=== PATIENT | female | born 1955 | race Caucasian/White ===

== ENCOUNTER 2017-09-19 08:35 | Inpatient (IN) | payer MEDICARE, OTHER ==
--- NOTE | 2017-09-16 19:00 | Pre-op HX & Phy Repo 2 SIG ---
DATE OF ADMISSION: 09/19/2017 HISTORY OF PRESENT ILLNESS: The patient is a 61-year-old female, in overall good health with a malfunctioning Ying ileostomy. The patient developed ulcerative colitis in 1986 at age 31. In 1998, she underwent proctocolectomy with creation of an ileoanal J-pouch. 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 The patient developed severe anemia without overt bleeding and no history of pouchitis, but her doctors felt that this was because of the J-pouch and in April 2015, she underwent laparotomy with resection of her J-pouch and abdominal-perineal proctectomy with creation of a Ying ileostomy. Her small bowel remaining was measured at 490 cm equivalent to 16 feet of small bowel. The patient has had marked difficulties with her ileostomy ever since and has allergies to various adhesives. The appliance will not stay on, her skin is often raw and bleeding. Enterostomal therapy nurses ([facility]) have not been able to prevent these issues. She has been unable to eat many different foods and unable to exercise at all. She has not had any issues with dehydration. In February 2017, she developed prolapse of her stoma with 7 inches of prolapse with emergency room visits. More recently, this prolapse is happening on a daily basis with fear of ischemic changes. She is scheduled to be admitted to be prepared for surgery to take down her malfunctioning ileostomy with conversion to a Hernandez type of Kock pouch continent ileostomy. She is in overall good health. PAST SURGICAL HISTORY: pituitary tumor surgery x 3 for acromegaly age 52 and she underwent left total hip replacement in 2013. MEDICATIONS: Paxil 40 mg daily, clonazepam 3 tablets of 0.5 mg daily, Imodium, Bentyl, and sodium bicarbonate tablets. ALLERGIES TO MEDICATIONS: Levaquin, Cipro, penicillin, and possibly sulfa. REVIEW OF SYSTEMS: Anxiety and headache. She has recently been started on amitriptyline to prevent headaches. The patient has acromegaly and had surgery three times for pituitary tumor at age 52. PHYSICAL EXAMINATION: GENERAL: The patient is 5 feet 7.5 inches tall and 140 pounds. [place] and will be examined upon arrival and dictated separately. IMPRESSION: 1. Malfunctioning Ying ileostomy with recurring frequent prolapse of stoma and allergies to adhesives of the appliance. 2. History of ulcerative colitis. 3. History of acromegaly status post pituitary tumor surgery x3 at age 52. 4. History of chronic anxiety for 20 years. 5. Status post total hip replacement left hip in 2013. 6. Status post multiple abdominal operations. 6.1. Proctocolectomy and ileoanal J-pouch in 1998. 6.2. Laparotomy for small bowel obstruction with resection in 2001. 6.3. Laparotomy for small bowel obstruction in 2003. 6.4. Laparotomy for small bowel obstruction with resection in 2007. 6.5. Laparotomy with takedown and resection of J-pouch with abdominal-perineal proctectomy and creation of Ying ileostomy on 05/05/2015. PLAN: I have had a full discussion with the patient regarding the nature of her condition, the nature of the Hernandez continent ileostomy operation, indications, alternatives, options, and risks. I have discussed the general risks of surgery including, bleeding, infection, injury to adjacent structures or organs, anesthetic reactions, deep vein thrombosis despite prophylaxis, etc. I have discussed the specific risks of the Hernandez pouch surgery including potential need for reoperation for slipped valve or fistula or other issues involving the pouch structure or function and I have also discussed the potential for pouchitis although she has never had pouchitis with the J-pouch. I will have another detailed discussion in person with the patient when she arrives [place] state. Enrique Oliva M.D. DR: SACHIN JOB#: [id number] CC: [email or web address]
[~2017-09-19] VITALS: Ht 171.4 cm; Wt 63.5 kg
[2017-09-19 09:00] VITALS: BP 138/82
[2017-09-19 09:57] LABS: BASOPHILS % (AUTO) 1.6 % (0.0-2.0); EOSINOPHILS % (AUTO) 2.5 % (0.0-3.0); HEMATOCRIT 36.9 % (37.0-47.0); HEMOGLOBIN 12.9 G/DL (12.0-16.0); LYMPHOCYTES % (AUTO) 15.5 % (20.0-45.0); MEAN CORPUSCULAR VOLUME 95 FL (80-99); MONOCYTES % (AUTO) 9.8 % (1.0-10.0); NEUTROPHILS % (AUTO) 70.6 % (45.0-75.0); PLATELET COUNT 326 K/UL (150-450); RED BLOOD COUNT 3.87 M/UL (4.20-5.40); WHITE BLOOD COUNT 5.6 K/UL (4.8-10.8)
[2017-09-19] MEDS ORDERED: Lidocaine 1% Plain 30 ml INJ ONE (10:00)
[2017-09-19] MEDS ORDERED: Heparin 2000 units/Ns 1000ml IV ONE (10:00)
[2017-09-19 10:26] LABS: ANION GAP 10 mmol/L (5-15); BLOOD UREA NITROGEN 12 mg/dL (7-18); CALCIUM 9.9 MG/DL (8.5-10.1); CARBON DIOXIDE 25 MMOL/L (21-32); CHLORIDE 94 MMOL/L (98-107); CREATININE 1.6 MG/DL (0.55-1.30); POTASSIUM 5.1 MMOL/L (3.5-5.1); SODIUM 129 MMOL/L (136-145)
[2017-09-19] MEDS ORDERED: DICYCLOMINE HCL20 M1 PO (10:29)
[2017-09-19] MEDS ORDERED: SODIUM BICARBO650 MG PO (10:29)
[2017-09-19] MEDS ORDERED: AMITRIPTYLINE H25 MG ORAL (10:29)
[2017-09-19] MEDS ORDERED: PAXIL40 MG ORAL (10:29)
[2017-09-19] MEDS ORDERED: KLONOPIN0.5 MG ORAL (10:29)
[2017-09-19 10:37] LABS: ALANINE AMINOTRANSFERASE 55 U/L (12-78); ALBUMIN 4.7 G/DL (3.4-5.0); ALBUMIN/GLOBULIN RATIO 1.2 (1.0-2.7); ALKALINE PHOSPHATASE 94 U/L (46-116); ASPARTATE AMINO TRANSFERASE 32 U/L (15-37); BILIRUBIN,TOTAL 0.4 MG/DL (0.2-1.0)
[2017-09-19 11:00] VITALS: BP 119/74
--- NOTE | 2017-09-19 11:26 | Diagnostic Imaging Report ---
Indications: Needs long-term IV access Technique: Ultrasound confirms patent compressible left basilic vein. Total sterile technique, including sterile probe cover and sterile gel, hat, mask,, sterile gown, large sterile drape, and preparation with 2% chlorhexidine utilized. Local anesthesia with 1% lidocaine. Under real-time ultrasound guidance, puncture basilic vein using 21-gauge needle, documented and archived, passage 0.018 guidewire under direct fluoroscopy, which was used to determine appropriate catheter length, exchange for 5 Faroese peel-away sheath. 5 Faroese Bard dual-lumen power PICC cut to 40 cm. It was inserted through the peel-away sheath. Peel-away sheath and guidewire removed. Catheter fixed to the skin. Both catheter ports aspirated and flushed. Patient tolerated procedure well, without immediate complication. Digital radiograph documents satisfactory catheter tip position, at the cavoatrial junction. Total fluoroscopy time 0.2 minutes. Total dose area product 4.5 dGycm2 Impression: Successful placement of left arm PICC under sonographic and fluoroscopic guidance, as described above.
--- NOTE | 2017-09-19 11:42 | Diagnostic Imaging Report ---
Indication: Cough, status post PICC Technique: One view of the chest Comparison: none Findings: The lungs and pleural spaces are clear. The heart size is normal. There is a left arm PICC, tip terminating in the superior vena cava. Impression: No acute process. Satisfactory PICC position
[2017-09-19] MEDS: clonazePAM 0.5mg tab ORAL PRN ×2 (12:25→23:51)
[2017-09-19] MEDS: Neomycin Sulfate 500mg Tab ORAL SCH ×3 (12:25→21:09)
--- NOTE | 2017-09-19 14:43 | General Progress Note ---
Progress Note Progress Note H&P dictated. Patient examined and site chosen for Hernandez Continent Ileostomy pouch stoma. Na 129 K 5.1 BUN 12 Cr 1.6 Albumin 4.7 Had vaso-vagal reaction post-PICC insertion , fine since Plan: IV hydration Dual lumen PIC (in place) Correct low sodium, mild dehydration f/u labs in AM Surgery tomorrow 1200 Full discussion with patient. TOM CARCAMO Sep 19, 2017 14:43
[2017-09-19 15:50] VITALS: BP 125/79
[2017-09-19 18:58] LABS: APPEARANCE,URINE CLEAR; BILIRUBIN, URINE NEGATIVE (NEGATIVE); COLOR,URINE PALE YELLOW; GLUCOSE, URINE (UA) NEGATIVE (NEGATIVE); KETONES,URINE NEGATIVE (NEGATIVE); LEUKOCYTE ESTERASE ,URINE NEGATIVE (NEGATIVE); NITRITE,URINE NEGATIVE (NEGATIVE); PH,URINE 6 (4.5-8.0); PROTEIN,URINE NEGATIVE (NEGATIVE); UROBILINOGEN,URINE NORMAL MG/DL (0.0-1.0)
[2017-09-19 20:00] VITALS: BP 104/69
--- NOTE | 2017-09-19 20:16 | Pre-op HX & Phy Repo 2 SIG ---
DATE OF ADMISSION: 09/19/2017 The patient has now [place] and is examined. Please see previously dictated History. PHYSICAL EXAMINATION: GENERAL: She appears well developed and well nourished, in no distress. HEENT: Within normal limits. LUNGS: Clear. HEART: Regular rhythm. BREASTS: Without masses. ABDOMEN: Soft and flat. There is a midline scar from epigastrium to pubis with minimal evidence of an umbilicus. The stoma of her Ying ileostomy is high in the right lower quadrant and it alternates between marked prolapse and retracting flush to the skin with peristomal skin irritation. There is no evidence of abdominal wall hernia. PELVIC: Per primary care physician recently. RECTAL: Status post proctectomy. EXTREMITIES: Without edema. Pulses 3+ femoral to pedal bilaterally. NEUROLOGIC: Physiologic. IMPRESSION: 1. Malfunctioning Ying ileostomy with recurrent frequent prolapse as well as retraction and allergies to adhesives of the appliance. 2. History of ulcerative colitis. 3. History of acromegaly status post pituitary tumor surgery x3 at age 52 4. History of chronic anxiety for 20 years. 5. Status post total hip replacement left hip 2013. 6. Status post multiple abdominal operations. 6.1. Proctocolectomy with ileoanal J-pouch and temporary loop ileostomy 1998 6.2. Closure of loop ileostomy 1998. 6.3. Laparotomy for small bowel obstruction with short segment resected 2001 6.4. Laparotomy for small bowel obstruction in 2003. 6.5. Laparotomy for small bowel obstruction with short segment resected 2007 6.6. Laparotomy with takedown and resection of ileoanal J-pouch with abdomino-perineal proctectomy and creation of Ying ileostomy April 2015 PLAN: The patient is a good candidate to undergo conversion of her malfunctioning conventional ileostomy to a Hernandez continent ileostomy. I have had a full discussion again with the patient regarding the nature of the surgery, indications, alternatives, options, and risks, both, the general and specific risks of the surgery. All questions have been answered. The patient understands and agreed to proceed. Enrique Oliva M.D. DR: TOMY JOB#: [id number] CC: СЕРГЕЙ
[2017-09-20] VITALS (12 sets, daily range): BP systolic 91–125; BP diastolic 54–92
[2017-09-20 05:59] LABS: ALANINE AMINOTRANSFERASE 44 U/L (12-78); ALBUMIN 3.8 G/DL (3.4-5.0); ALBUMIN/GLOBULIN RATIO 1.2 (1.0-2.7); ALKALINE PHOSPHATASE 81 U/L (46-116); ANION GAP 6 mmol/L (5-15); ASPARTATE AMINO TRANSFERASE 27 U/L (15-37); BILIRUBIN,TOTAL 0.3 MG/DL (0.2-1.0); BLOOD UREA NITROGEN 11 mg/dL (7-18); CALCIUM 8.5 MG/DL (8.5-10.1); CARBON DIOXIDE 27 MMOL/L (21-32); CHLORIDE 100 MMOL/L (98-107); CREATININE 1.4 MG/DL (0.55-1.30); POTASSIUM 3.9 MMOL/L (3.5-5.1); SODIUM 133 MMOL/L (136-145)
--- NOTE | 2017-09-20 08:34 | General Progress Note ---
Progress Note Progress Note AVSS After overnight IV hydration with NS: Na 133 (was 129) Cr 1.4 (was 1.6) Albumin 3.8 Stable for surgery. TOM CARCAMO Sep 20, 2017 08:34
--- NOTE | 2017-09-20 08:35 | Pre-Procedure Note/Attestation ---
Pre-Procedure Note/Attestation Complete Prior to Procedure Planned Procedure: not applicable Procedure Narrative: Hernandez Continent Ileostomy; gastrostomy Indications for Procedure Pre-Operative Diagnosis: Malfunctioning Ying ileostomy with prolapse and retraction Attestation I attest that I discussed the nature of the procedure; its benefits; risks and complications; and alternatives (and the risks and benefits of such alternatives ), prior to the procedure, with the patient (or the patient's legal phlebotomy services representative). I attest that, if there was a reasonable possibility of needing a blood transfusion, the patient (or the patient's legal phlebotomy services representative) was given the [facility] standardized written summary, pursuant to the [place] Blood Safety Act ([place] Health and Safety Code # 1645, as amended). I attest that I re-evaluated the patient just prior to the surgery and that there has been no change in the patient's H&P, except as documented below: none TOM CARCAMO Sep 20, 2017 08:35
[2017-09-20] MEDS: Aztreonam Inj 1 GM in D5W 55 ML IVPB SCH ×2 (09:17→21:31)
[2017-09-20] MEDS: PARoxetine 20mg tab ORAL SCH (09:17)
[2017-09-20] MEDS ORDERED: Bacitracin 50000 Units Vial ONE (09:35)
[2017-09-20] MEDS ORDERED: Propofol 200mg/20ml IV ONE (09:35)
--- NOTE | 2017-09-20 09:48 | Anethesia Preoperative Eval ---
Anesthesia Pre-op PMH/ROS General Date of Evaluation: Sep 20, 2017 Time of Evaluation: 11:45 Anesthesiologist: Osmel ASA Score: ASA 2 Mallampati Score Class I : Soft palate, uvula, fauces, pillars visible Class II: Soft palate, uvula, fauces visible Class III: Soft palate, base of uvula visible Class IV: Only hard plate visible Mallampati Classification: Class II Surgeon: Pj Diagnosis: Malfunctioning ileostomy Surgical Procedure: Hernandez pouch Family History: no anesthesia problems Allergies: Coded Allergies: LEVOFLOXACIN (Verified Allergy, Severe, 09/19/17) THROAT,LIPS SWELLING PENICILLINS (Verified Allergy, Severe, Hives, 09/19/17) SULFA (SULFONAMIDE ANTIBIOTICS) (Verified Allergy, Mild, 09/19/17) THROAT,LIPS SWELLING Medications: see eMAR Past Medical History Cardiovascular: Denies: HTN, CAD, [place], valve dz, arrhythmia, other Pulmonary: Denies: asthma, COPD, [place], other Gastrointestinal/Genitourinary: Reports: other; Denies: GERD, CRI, ESRD Neurologic/Psychiatric: Reports: depression/anxiety - anxiety; Denies: dementia, CVA, TIA, other Endocrine: Reports: other - Acromegaly s/p pituitary tumor excision at age 5; Denies: DM, hypothyroidism, steroids HEENT: Denies: cataract (L), cataract (R), glaucoma, [place] (L), [place] (R), other Hematology/Immune: Denies: anemia, DVT, bleeding disorder, other Musculoskeletal/Integumentary: Denies: OA, RA, DJD, DDD, edema, other PMH Narrative: Acromegaly (s/p pituitary tumor excision at age 5), ulcerative colitis PSxH Narrative: Pituitary tumor excision, muliple abdominal surgeries including proctectomy Anesthesia Pre-op Phys. Exam Physician Exam Last Vital Signs Date Time Temp Pulse Resp B/P (MAP) Pulse Ox O2 Delivery O2 Flow Rate FiO2 09/20/17 08:00 98.4 87 18 107/64 94 Room Air 98.4 Constitutional: NAD Neurologic: CN 2-12 intact Cardiovascular: RRR, no M/R/G Respiratory: CTA Gastrointestinal: S/NT/ND Airway Exam Mallampati Score: Class II MO: full ROM: full Teeth: intact Anesthesia Pre-op A/P Labs Hematology Test 09/19/17 09:45 09/20/17 05:00 White Blood Count 5.6 K/UL (4.8-10.8) Pending Red Blood Count 3.87 M/UL (4.20-5.40) L Pending Hemoglobin 12.9 G/DL (12.0-16.0) Pending Hematocrit 36.9 % (37.0-47.0) L Pending Mean Corpuscular Volume 95 FL (80-99) Pending Mean Corpuscular Hemoglobin 33.3 PG (27.0-31.0) H Pending Mean Corpuscular Hemoglobin Concent 35.0 G/DL (32.0-36.0) Pending Red Cell Distribution Width 12.0 % (11.6-14.8) Pending Platelet Count 326 K/UL (150-450) Pending Mean Platelet Volume 5.4 FL (6.5-10.1) L Pending Neutrophils (%) (Auto) 70.6 % (45.0-75.0) Pending Lymphocytes (%) (Auto) 15.5 % (20.0-45.0) L Pending Monocytes (%) (Auto) 9.8 % (1.0-10.0) Pending Eosinophils (%) (Auto) 2.5 % (0.0-3.0) Pending Basophils (%) (Auto) 1.6 % (0.0-2.0) Pending Coagulation Test 09/19/17 09:45 Prothrombin Time 10.0 SEC (9.30-11.50) Prothromb Time International Ratio 1.0 (0.9-1.1) Activated Partial Thromboplast Time 24 SEC (23-33) Chemistry Test 09/19/17 09:45 09/20/17 04:00 Sodium Level 129 MMOL/L (136-145) L 133 MMOL/L (136-145) L Potassium Level 5.1 MMOL/L (3.5-5.1) 3.9 MMOL/L (3.5-5.1) Chloride Level 94 MMOL/L (98-107) L 100 MMOL/L (98-107) Carbon Dioxide Level 25 MMOL/L (21-32) 27 MMOL/L (21-32) Anion Gap 10 mmol/L (5-15) 6 mmol/L (5-15) Blood Urea Nitrogen 12 mg/dL (7-18) 11 mg/dL (7-18) Creatinine 1.6 MG/DL (0.55-1.30) H 1.4 MG/DL (0.55-1.30) H Estimat Glomerular Filtration Rate 33.0 mL/min (>60) 38.5 mL/min (>60) Glucose Level 107 MG/DL (74-106) H 97 MG/DL (74-106) Calcium Level 9.9 MG/DL (8.5-10.1) 8.5 MG/DL (8.5-10.1) Total Bilirubin 0.4 MG/DL (0.2-1.0) 0.3 MG/DL (0.2-1.0) Aspartate Amino Transf (AST/SGOT) 32 U/L (15-37) 27 U/L (15-37) Alanine Aminotransferase (ALT/SGPT) 55 U/L (12-78) 44 U/L (12-78) Alkaline Phosphatase 94 U/L (46-116) 81 U/L (46-116) Total Protein 8.6 G/DL (6.4-8.2) H 7.0 G/DL (6.4-8.2) Albumin 4.7 G/DL (3.4-5.0) 3.8 G/DL (3.4-5.0) Globulin 3.9 g/dL 3.2 g/dL Albumin/Globulin Ratio 1.2 (1.0-2.7) 1.2 (1.0-2.7) Risk Assessment & Plan Assessment: Class 2 patient for Hernandez pouch Plan: ROMERO GRESHAM M.D. Sep 20, 2017 09:48
--- NOTE | 2017-09-20 09:57 | Anethesia Preoperative Eval ---
Anesthesia Pre-op PMH/ROS General Date of Evaluation: Sep 20, 2017 Time of Evaluation: 09:48 Anesthesiologist: Rosanna ASA Score: ASA 3 Mallampati Score Class I : Soft palate, uvula, fauces, pillars visible Class II: Soft palate, uvula, fauces visible Class III: Soft palate, base of uvula visible Class IV: Only hard plate visible Mallampati Classification: Class II Surgeon: Pj Diagnosis: Malfunctioning ileostomy Surgical Procedure: Exploratory laparotomy, creation of continent pouch Anesthesia History: none Family History: no anesthesia problems Allergies: Coded Allergies: LEVOFLOXACIN (Verified Allergy, Severe, 09/19/17) THROAT,LIPS SWELLING PENICILLINS (Verified Allergy, Severe, Hives, 09/19/17) SULFA (SULFONAMIDE ANTIBIOTICS) (Verified Allergy, Mild, 09/19/17) THROAT,LIPS SWELLING Medications: see eMAR Past Medical History Cardiovascular: Denies: HTN, CAD, [place], valve dz, arrhythmia, other Pulmonary: Denies: asthma, COPD, [place], other Gastrointestinal/Genitourinary: Reports: GERD, other - H/o UC s/p total colectomy; Denies: CRI, ESRD Neurologic/Psychiatric: Reports: depression/anxiety, other - pituitary tumor acromegaly s/p surgical treatment x 3, chronic mild headaches; Denies: dementia, CVA, TIA Endocrine: Denies: DM, hypothyroidism, steroids, other HEENT: Denies: cataract (L), cataract (R), glaucoma, [place] (L), [place] (R), other Hematology/Immune: Reports: anemia; Denies: DVT, bleeding disorder, other Musculoskeletal/Integumentary: Denies: OA, RA, DJD, DDD, edema, other PMH Narrative: as above, admitted for malfunctioning ileostomy, creation of continence pouch. PSxH Narrative: Total colectomy multiple intraabdominal Sx for small bowel obstruction and maintenance of ileostomy, pituitary Sx x3 Hip arthroplasty Anesthesia Pre-op Phys. Exam Physician Exam Last Vital Signs Date Time Temp Pulse Resp B/P (MAP) Pulse Ox O2 Delivery O2 Flow Rate FiO2 09/20/17 08:00 98.4 87 18 107/64 94 Room Air 98.4 Constitutional: NAD Neurologic: CN 2-12 intact Cardiovascular: RRR, no M/R/G Respiratory: CTA Gastrointestinal: S/NT/ND Airway Exam Mallampati Score: Class II MO: full Neck: flexible ROM: limited Teeth: intact Dentures: no upper, no lower Anesthesia Pre-op A/P Labs Hematology Test 09/20/17 05:00 White Blood Count Pending Red Blood Count Pending Hemoglobin Pending Hematocrit Pending Mean Corpuscular Volume Pending Mean Corpuscular Hemoglobin Pending Mean Corpuscular Hemoglobin Concent Pending Red Cell Distribution Width Pending Platelet Count Pending Mean Platelet Volume Pending Neutrophils (%) (Auto) Pending Lymphocytes (%) (Auto) Pending Monocytes (%) (Auto) Pending Eosinophils (%) (Auto) Pending Basophils (%) (Auto) Pending Chemistry Test 09/20/17 04:00 Sodium Level 133 MMOL/L (136-145) L Potassium Level 3.9 MMOL/L (3.5-5.1) Chloride Level 100 MMOL/L (98-107) Carbon Dioxide Level 27 MMOL/L (21-32) Anion Gap 6 mmol/L (5-15) Blood Urea Nitrogen 11 mg/dL (7-18) Creatinine 1.4 MG/DL (0.55-1.30) H Estimat Glomerular Filtration Rate 38.5 mL/min (>60) Glucose Level 97 MG/DL (74-106) Calcium Level 8.5 MG/DL (8.5-10.1) Total Bilirubin 0.3 MG/DL (0.2-1.0) Aspartate Amino Transf (AST/SGOT) 27 U/L (15-37) Alanine Aminotransferase (ALT/SGPT) 44 U/L (12-78) Alkaline Phosphatase 81 U/L (46-116) Total Protein 7.0 G/DL (6.4-8.2) Albumin 3.8 G/DL (3.4-5.0) Globulin 3.2 g/dL Albumin/Globulin Ratio 1.2 (1.0-2.7) Studies Pre-op Studies: EKG - NSR Risk Assessment & Plan Assessment: ASA 3 Plan: GA with ETT Status Change Before Surgery: No Pre-Antibiotics Drug: as scheduled PREM GENAO M.D. Sep 20, 2017 09:57
[2017-09-20] MEDS ORDERED: Heparin 5000 units/ml inj SUBQ ONE (10:00)
[2017-09-20 10:21] LABS: WHITE BLOOD COUNT 4.9 K/UL (4.8-10.8)
[2017-09-20 10:23] LABS: BASOPHILS % (AUTO) 1.2 % (0.0-2.0); EOSINOPHILS % (AUTO) 3.9 % (0.0-3.0); HEMATOCRIT 32.5 % (37.0-47.0); HEMOGLOBIN 10.9 G/DL (12.0-16.0); LYMPHOCYTES % (AUTO) 18.7 % (20.0-45.0); MEAN CORPUSCULAR VOLUME 95 FL (80-99); MONOCYTES % (AUTO) 10.1 % (1.0-10.0); PLATELET COUNT 277 K/UL (150-450); RED BLOOD COUNT 3.41 M/UL (4.20-5.40); RED CELL DISTRIBUTION WIDTH 11.8 % (11.6-14.8)
[2017-09-20] MEDS ORDERED: NS Irrig 1000ml ONE (11:30)
[2017-09-20] MEDS ORDERED: Sterile Water Irrig 1000ml IRRIG ONE (11:30)
[2017-09-20] MEDS ORDERED: Morphine Sulfate 10mg/ml Inj ONE (11:30)
[2017-09-20] MEDS ORDERED: Zemuron 50mg/5ml Inj IV ONE (11:30)
[2017-09-20] MEDS ORDERED: Midazolam 2mg/2ml Inj ONE (11:30)
[2017-09-20] MEDS ORDERED: Ketorolac 30mg Inj ONE (11:30)
[2017-09-20] MEDS ORDERED: Glycopyrrolate 0.2mg/ml 1ml Vial ONE (11:30)
[2017-09-20] MEDS ORDERED: Neostigmine 1mg/ml 10ml Inj ONE (11:30)
[2017-09-20] MEDS ORDERED: fentaNYL 100 mcg/2 mL IV ONE (11:30)
[2017-09-20] MEDS ORDERED: LR 1000ml ONE (11:30)
[2017-09-20] MEDS ORDERED: NeoSporin Gu Irrig 1ml Amp IRRIG ONE (11:35)
[2017-09-20 11:44] LABS: FERRITIN 709 NG/ML (8-388)
[2017-09-20 11:56] LABS: % IRON SATURATION 26 % (15-50); IRON 81 ug/dL (50-175); TOTAL IRON BINDING CAPACITY 317 ug/dL (250-450)
[2017-09-20] MEDS ORDERED: NS Irrig 1000ml IRRIG ONE (12:05)
[2017-09-20] MEDS ORDERED: LR 1000ml 1,000 ML IVLG SCH (13:44)
[2017-09-20] MEDS ORDERED: Hydromorphone 0.5mg/0.5ml inj IVP PRN (13:45)
[2017-09-20] MEDS ORDERED: DiphenhydrAMINE 50mg/ml Inj IVP PRN ×2 (13:45→16:30)
[2017-09-20] MEDS ORDERED: Meperidine 50mg/ml Inj(FOR RIGORS ONLY) IV PRN (13:45)
[2017-09-20] MEDS ORDERED: Midazolam 2mg/2ml Inj IVP PRN (13:45)
[2017-09-20] MEDS ORDERED: Ketorolac 30mg Inj IV PRN (13:45)
[2017-09-20] MEDS ORDERED: PCA Morphine 1mg/ml 30 ML IV ONE (16:20)
[2017-09-20] MEDS ORDERED: Surgicel 4in x 8in TOPIC ONE (16:26)
[2017-09-20] MEDS ORDERED: Rate Change PCA 1 Each MISC PRN (16:30)
[2017-09-20] MEDS ORDERED: Morphine Sulfate 2mg/ml Inj IVP PRN (16:30)
[2017-09-20] MEDS ORDERED: Morphine Sulfate 4mg/ml Inj SUBQ PRN (16:30)
[2017-09-20] MEDS ORDERED: Naloxone 0.4mg/ml Inj IVP PRN (16:30)
--- NOTE | 2017-09-20 16:31 | Brief Operative Note ---
Immediate Post Operative Note Operative Note Pre-op Diagnosis: Malfunctioning Ying ileostomy with prolapse and retraction Procedure: Hernandez Continent ileostomy, gastrostomy Post-op Diagnosis: same Post-op Diagnosis: same as pre-op Findings: consistent w/pre-op dx studies Surgeon: ravindra Senior Investigator: henrik Anesthesiologist: sue Anesthesia: general Specimen: yes Complications: none Condition: stable Fluids: see anesthesia record Estimated Blood Loss: volume - 50ml Drains: other - 28 Frost to Hernandez pouch; 18 Frost gastrostomy; 0.25" nolan drain Implant(s) used?: No TOM CARCAMO Sep 20, 2017 16:31
--- NOTE | 2017-09-20 16:32 | Immediate Post-Op Evaluation ---
Immediate Post-Op Evalulation Immediate Post-Op Evalulation Procedure: Exploratory laparotomy creation of continent pouch Date of Evaluation: Sep 20, 2017 Time of Evaluation: 16:30 IV Fluids: 1600 Blood Products: Albumin 250 Estimated Blood Loss: 50 Urinary Output: 750 Blood Pressure Systolic: 98 Blood Pressure Diastolic: 66 Pulse Rate: 92 Respiratory Rate: 22 O2 Sat by Pulse Oximetry: 98 Temperature (Fahrenheit): 97.6 Pain Score (1-10): 2 Nausea: No Vomiting: No Complications none Patient Status: awake, patent, extubated, none Hydration Status: adequate PREM GENAO M.D. Sep 20, 2017 16:32
[2017-09-20] MEDS: PCA Morphine 1mg/ml 30 ML IV PRN ×2 (16:43→20:05)
[2017-09-20] MEDS ORDERED: Acetaminophen 650mg/20.3ml GT PRN (17:30)
[2017-09-20] MEDS: D5 1/2NS w/KCl 20mEq 1,000 ML IV SCH (17:57)
[2017-09-20] MEDS ORDERED: PCA Education Pamphlet MISC ONE (18:00)
[2017-09-20] MEDS: PCA shift volume MISC SCH (19:00)
[2017-09-20] MEDS: Dyna-Hex 2% Top Sol 2oz TOPIC SCH (20:05)
[2017-09-20] MEDS ORDERED: LORazepam 1mg tab SL PRN (21:00)
--- NOTE | 2017-09-20 22:00 | Operative Note - Dictated ---
DATE OF OPERATION: 09/20/2017 SURGEON: Enrique Oliva M.D. POSTDOCTORAL RESEARCH ASSOCIATE SURGEON: Claudio Kumar M.D. ANESTHESIOLOGIST: Geovani Marte M.D. TYPE OF ANESTHESIA: General endotracheal. PREOPERATIVE DIAGNOSES: 1. 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 2. History of ulcerative colitis. 3. Status post multiple abdominal operations. 3.1. Proctocolectomy and ileoanal J-pouch in 1998. 3.2. Laparotomy for small bowel obstruction with resection in 2001. 3.3. Laparotomy for small bowel obstruction in 2003. 3.4. Laparotomy for small bowel obstruction with resection in 2007. 3.5. Laparotomy with takedown and resection of J-pouch with abdominoperineal proctectomy and creation of Ying ileostomy with measurement of 16 feet of small intestine 2014 POSTOPERATIVE DIAGNOSES: 1. 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 2. History of ulcerative colitis. 3. Status post multiple abdominal operations. 3.1. Proctocolectomy and ileoanal J-pouch in 1998. 3.2. Laparotomy for small bowel obstruction with resection in 2001. 3.3. Laparotomy for small bowel obstruction in 2003. 3.4. Laparotomy for small bowel obstruction with resection in 2007. 3.5. Laparotomy with takedown and resection of J-pouch with abdominoperineal proctectomy and creation of Ying ileostomy with measurement of 16 feet of small intestine 2014 OPERATION PERFORMED: 1. Hernandez continent ileostomy. 2. Catheter gastrostomy. DESCRIPTION OF PROCEDURE: The patient was taken to the operating room and under general endotracheal anesthesia with sequential compression device stockings and Frost catheter in place and having received preoperative intravenous antibiotics and subcutaneous heparin, the patient was prepped and draped in the usual fashion. The stoma in the right lower quadrant was initially sealed with a Tegaderm. Previous midline incision was reopened from the lower epigastrium to the pubis. There were no adhesions within the abdominal cavity. The liver and gallbladder were normal to inspection and palpation. The stomach and all of the small bowel was normal. Uterus, tubes, and ovaries were normal. The small bowel was measured from ligament of Treitz to the stoma with a measurement of at least 14 feet likely 16 feet of small bowel with significant elasticity of the bowel. The stoma in the right lower quadrant was dismantled with a transversely oriented elliptical incision and brought into the abdomen. The fascia defect was closed with interrupted inverted [id number]-[id number] #0 Prolene sutures and a Betadine soaked Ray-Clark placed in the subcutaneous tissues. The ileostomy segment itself was resected after dividing the mesentery and ligating with 3-0 silk and dividing the bowel with the linear stapler 30 with the staple line imbricated with 3-0 silk. 12 cm proximal was marked for the collar segment and then 15 cm proximal to this marked for the pouch. The two adjacent 15 cm loops of bowel were placed side by side. With appropriately located enterotomies in each limb the GI 75 stapler was used to create the ileal reservoir. The staple line was everted and there was one defect closed with interrupted 3-0 chromic sutures followed by imbricating 3-0 silk. The mucosal aspect of the staple line was carefully inspected and hemostasis secured with hemoclips. The junction of the afferent bowel and the pouch was marked with a chromic suture and 12 cm proximal marked for the valve segment. A 2 fingerbreadth mesenteric hiatus created at this point ligating vessels with 3-0 silk. The abdominal wall thickness measured 2 cm. The appropriate length access segment was measured and marked and the mesentery divided again ligating with 3-0 silk. The bowel was then divided proximally with the linear stapler 30 imbricated with 3-0 silk and distally left open to become the new stoma. Now the peritoneum on each side of the valve segment mesentery was stripped and the serosa scarified with cautery. Then with gradual intussusception, a 6.0 cm long nipple valve was created. Two applications of the PI 55 stapling device with 4.8 mm janell was utilized 90 degrees away from the mesentery on each side. Then 3-0 silk sutures were placed on each side of the access segment mesentery to the pouch and a third application of the PI 55 stapling device utilized to staple the valve to the anterior pouch wall. Additional 3-0 silk taken between the access segment and the pouch. Using the [place] suction, I confirmed proper alignment and ready entry into the pouch. Now, the afferent bowel was brought to the pouch enterotomy with a very short blind end and a qaqu-qx-supw anastomosis created with an outer layer of 3-0 silk. Then, the proximal bowel was opened and a full-thickness posterior locking continuous suture of 2-0 chromic was used, followed by continuing it as an anterior [place] suture. Additional 3-0 silk sutures were then placed. There was a good 2 fingerbreadth anastomosis created. Then the end of the collar was brought through the mesenteric hiatus at the junction of the access and valve segments and sutured to the access segment, to itself and to the pouch with multiple interrupted 3-0 silk sutures. The 28-Sudanese Frost catheter readily entered the pouch. The afferent bowel was manually occluded and the pouch distended with 120 mL of saline. There was no extravasation and upon removing the catheter, the pouch was completely continent. The catheter was reintroduced and the pouch decompressed. At a previously marked site low in the right lower quadrant, a 2.5 cm narrow ellipse of skin was excised in transverse orientation in the mid-rectus position and then with a cruciate incision in the fascia creation a 2 fingerbreadth abdominal wall hiatus was created. The posterior pouch was sutured to the peritoneum with interrupted 3-0 Vicryl. Some bleeding from the rectus muscle was controlled with 2-0 chromic [id number] suture. Then the access segment with its mesentery was brought through the abdominal wall and a 3-0 Vicryl placed between the anterior pouch and the peritoneum. With slight stretch on the access segment, slight redundancy was excised and the stoma primarily matured with continuous 2-0 chromic locking sutures starting at the 3 and 9 o'clock positions. The 28-Sudanese Frost was appropriately positioned at the apex of the pouch and then marked at the level of the stoma with a 3-0 silk and sutured to the skin with two sutures of 2-0 silk. The catheter was flushed and connected to a gravity drainage bag. Hemostasis was secure. Then due to the need for prolonged gastrointestinal decompression, a catheter gastrostomy was created by placing an 18-Sudanese Frost catheter through a stab incision in the left upper quadrant and placed into the greater curve anterior wall fundus of the stomach between two concentric 2-0 chromic pursestring sutures with the balloon inflated in the fundus and the stomach then sutured to the anterior abdominal wall with multiple interrupted 2-0 silk sutures. The catheter was sutured to the skin with a 2-0 silk suture and it was then flushed and connected to a gravity drainage bag. The field was inspected and hemostasis was secure. The pouch lay nicely in the pelvis and the bowel loops were replaced anatomically. The midline incision was closed in one layer with continuous #1 Prolene starting at both ends and inverting the knots. Throughout the procedure, the abdominal wall incision had been protected with antibiotic-soaked lap sponges. Additional antibiotic irrigation was performed now and the midline incision and the prior ileostomy site incision were closed with janell. Dry sterile dressings were applied. Final sponge and needle counts were correct. Estimated blood loss 50 mL. The patient tolerated the procedure well and left the operating room in good condition. Enrique Oliva M.D. DR: SACHIN JOB#: [id number] CC: [email or web address]
[2017-09-21] VITALS (7 sets, daily range): BP systolic 98–115; BP diastolic 57–73
[2017-09-21] MEDS: D5 1/2NS w/KCl 20mEq 1,000 ML IV SCH ×2 (04:12→13:36)
[2017-09-21 05:27] LABS: HEMATOCRIT 30.4 % (37.0-47.0); HEMOGLOBIN 9.9 G/DL (12.0-16.0); MEAN CORPUSCULAR VOLUME 98 FL (80-99); PLATELET COUNT 214 K/UL (150-450); RED BLOOD COUNT 3.09 M/UL (4.20-5.40); RED CELL DISTRIBUTION WIDTH 12.5 % (11.6-14.8); WHITE BLOOD COUNT 10.4 K/UL (4.8-10.8)
[2017-09-21 05:39] LABS: ALANINE AMINOTRANSFERASE 35 U/L (12-78); ALBUMIN 3.2 G/DL (3.4-5.0); ALBUMIN/GLOBULIN RATIO 1.1 (1.0-2.7); ALKALINE PHOSPHATASE 65 U/L (46-116); ANION GAP 7 mmol/L (5-15); ASPARTATE AMINO TRANSFERASE 34 U/L (15-37); BILIRUBIN,TOTAL 0.2 MG/DL (0.2-1.0); BLOOD UREA NITROGEN 8 mg/dL (7-18); CALCIUM 7.6 MG/DL (8.5-10.1); CARBON DIOXIDE 26 MMOL/L (21-32); CHLORIDE 108 MMOL/L (98-107); CREATININE 1.4 MG/DL (0.55-1.30); POTASSIUM 4.6 MMOL/L (3.5-5.1); SODIUM 141 MMOL/L (136-145)
[2017-09-21] MEDS: PCA shift volume MISC SCH ×2 (07:00→19:20)
[2017-09-21] MEDS: PARoxetine 20mg tab ORAL SCH (08:38)
[2017-09-21] MEDS: Aztreonam Inj 1 GM in D5W 55 ML IVPB SCH ×2 (08:39→20:43)
--- NOTE | 2017-09-21 08:43 | General Progress Note ---
Progress Note Progress Note AVSS with mild tachycardia. 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 severe Plan: NPO Start TPN tonight Continue IV antibiotics Continue castrejon (pelvic dissection) ambulate with assistance BID f/u labs TOM CARCAMO Sep 21, 2017 08:43
[2017-09-21] MEDS: PCA Morphine 1mg/ml 30 ML IV PRN ×2 (08:55→17:57)
[2017-09-21] MEDS ORDERED: Morphine Sulfate 2mg/ml Inj IVP PRN (09:00)
[2017-09-21] MEDS ORDERED: Morphine Sulfate 4mg/ml Inj SUBQ PRN (09:00)
[2017-09-21] MEDS ORDERED: DiphenhydrAMINE 50mg/ml Inj IVP PRN (09:00)
[2017-09-21] MEDS ORDERED: Naloxone 0.4mg/ml Inj IVP PRN (09:00)
[2017-09-21] MEDS ORDERED: Rate Change PCA 1 Each MISC PRN (09:00)
--- NOTE | 2017-09-21 11:49 | 48 Hour Post Anesthesia Eval ---
Post Anesthesia Evaluation Procedure: Exploratory laparotomy creation of continent pouch Date of Evaluation: Sep 21, 2017 Time of Evaluation: 08:42 Blood Pressure Systolic: 116 0: 72 Pulse Rate: 58 Respiratory Rate: 22 Temperature (Fahrenheit): 97.6 O2 Sat by Pulse Oximetry: 98 Airway: patent Nausea: No Vomiting: No Pain Intensity: 3 Hydration Status: adequate Cardiopulmonary Status: stable Mental Status/LOC: patient returned to baseline Follow-up Care/Observations: n/a Post-Anesthesia Complications: none Follow-up care needed: N/A PREM GENAO M.D. Sep 21, 2017 11:49
[2017-09-21] MEDS: clonazePAM 0.5mg tab ORAL PRN (13:59)
[2017-09-21] MEDS ORDERED: Tubing IV Secondary IV ONE (17:37)
[2017-09-21] MEDS ORDERED: NS Irrig 1000ml ONE (17:37)
[2017-09-21] MEDS: TPN IV SCH (20:41)
[2017-09-21] MEDS: Dyna-Hex 2% Top Sol 2oz TOPIC SCH (20:41)
[2017-09-21] MEDS: FAT EMULSION 20% IV SCH (20:41)
[2017-09-21] MEDS ORDERED: D5 1/2NS w/KCl 20mEq 1,000 ML IV SCH (21:00)
[2017-09-21] MEDS ORDERED: Fat Emulsion Iv 20% 250 ML IV SCH (21:00)
[2017-09-21] MEDS ORDERED: Dextrose 10% 1,000 ML IV PRN (21:00)
[2017-09-21] MEDS: NovoLOG Insulin Flexpen SUBQ SCH (23:35)
[2017-09-22] MEDS: PCA Morphine 1mg/ml 30 ML IV PRN ×2 (01:24→12:31)
[2017-09-22 04:00] VITALS: BP 112/73
[2017-09-22 05:09] LABS: ANION GAP 6 mmol/L (5-15); BLOOD UREA NITROGEN 7 mg/dL (7-18); CALCIUM 8.3 MG/DL (8.5-10.1); CARBON DIOXIDE 28 MMOL/L (21-32); CHLORIDE 108 MMOL/L (98-107); CREATININE 1.1 MG/DL (0.55-1.30); POTASSIUM 4.6 MMOL/L (3.5-5.1); SODIUM 141 MMOL/L (136-145)
[2017-09-22 05:42] LABS: BASOPHILS % (AUTO) 0.2 % (0.0-2.0); EOSINOPHILS % (AUTO) 3.5 % (0.0-3.0); HEMATOCRIT 26.2 % (37.0-47.0); HEMOGLOBIN 8.5 G/DL (12.0-16.0); LYMPHOCYTES % (AUTO) 5.2 % (20.0-45.0); MEAN CORPUSCULAR VOLUME 99 FL (80-99); MONOCYTES % (AUTO) 7.3 % (1.0-10.0); NEUTROPHILS % (AUTO) 83.8 % (45.0-75.0); PLATELET COUNT 195 K/UL (150-450); RED BLOOD COUNT 2.66 M/UL (4.20-5.40); RED CELL DISTRIBUTION WIDTH 12.2 % (11.6-14.8); WHITE BLOOD COUNT 8.7 K/UL (4.8-10.8)
[2017-09-22] MEDS: NovoLOG Insulin Flexpen SUBQ SCH ×4 (05:42→23:48)
[2017-09-22] MEDS: PCA shift volume MISC SCH ×2 (07:00→19:24)
[2017-09-22 08:00] VITALS: BP 117/74
--- NOTE | 2017-09-22 08:24 | General Progress Note ---
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 Fair to good IS effort compared to pre- op. Has been drinking water - advised again to stop Chest clear Abdomen soft, mild distention, incisions clean, stoma pink, nolan serosang small amount, abd.non tender Urine 1950 BCIR ileo 190 serosang Gastrostomy 820 (water) WBC 8700 Hgb 8.5 Iron 81 (50-175) Cr now 1.1 Imp. Ileus Atelectasis sub-clinical peritonitis from open bowel during surgery for prolonged time Plan: TPN, continue IV antibiotics, continue Frost, continue NPO except ice chips Venofer 100mg IV x 5 days f/u labs TOM CARCAMO Sep 22, 2017 08:24
[2017-09-22] MEDS ORDERED: DiphenhydrAMINE 50mg/ml Inj IVP PRN (09:00)
[2017-09-22] MEDS ORDERED: Naloxone 0.4mg/ml Inj IVP PRN (09:00)
[2017-09-22] MEDS ORDERED: Morphine Sulfate 4mg/ml Inj SUBQ PRN (09:00)
[2017-09-22] MEDS ORDERED: Rate Change PCA 1 Each MISC PRN (09:00)
[2017-09-22] MEDS ORDERED: Morphine Sulfate 2mg/ml Inj IVP PRN (09:00)
[2017-09-22] MEDS: Aztreonam Inj 1 GM in D5W 55 ML IVPB SCH ×2 (09:02→18:30)
[2017-09-22] MEDS: PARoxetine 20mg tab ORAL SCH (09:03)
[2017-09-22] MEDS: clonazePAM 0.5mg tab ORAL SCH ×3 (09:04→18:26)
[2017-09-22] MEDS: D5 1/2NS w/KCl 20mEq 1,000 ML IV SCH (09:36)
[2017-09-22 12:00] VITALS: BP 116/73
[2017-09-22 16:00] VITALS: BP 117/74
--- NOTE | 2017-09-22 19:16 | Cardiology Report ---
APPROVED REPORT EKG Measurement Heart [id number] Normal sinus rhythm Normal ECG
[2017-09-22 20:00] VITALS: BP 119/74
[2017-09-22] MEDS: TPN IV SCH (21:33)
[2017-09-22] MEDS: FAT EMULSION 20% IV SCH (21:33)
[2017-09-22] MEDS: Dyna-Hex 2% Top Sol 2oz TOPIC SCH (21:34)
[2017-09-22] MEDS: Iron Sucrose 100 MG in NS 110 ML IV SCH (21:34)
[2017-09-23] VITALS: BP 122/75
[2017-09-23] MEDS: Aztreonam Inj 1 GM in D5W 55 ML IVPB SCH ×3 (00:58→16:12)
[2017-09-23] MEDS: PCA Morphine 1mg/ml 30 ML IV PRN (03:18)
[2017-09-23 04:00] VITALS: BP 127/78
[2017-09-23] MEDS: D5 1/2NS w/KCl 20mEq 1,000 ML IV SCH (04:17)
[2017-09-23] MEDS: NovoLOG Insulin Flexpen SUBQ SCH ×3 (05:55→17:36)
[2017-09-23 06:22] LABS: BASOPHILS % (AUTO) 0.7 % (0.0-2.0); EOSINOPHILS % (AUTO) 5.2 % (0.0-3.0); HEMATOCRIT 25.3 % (37.0-47.0); HEMOGLOBIN 8.3 G/DL (12.0-16.0); MEAN CORPUSCULAR VOLUME 98 FL (80-99); MONOCYTES % (AUTO) 8.2 % (1.0-10.0); NEUTROPHILS % (AUTO) 78.8 % (45.0-75.0); PLATELET COUNT 154 K/UL (150-450); RED BLOOD COUNT 2.58 M/UL (4.20-5.40); RED CELL DISTRIBUTION WIDTH 12.3 % (11.6-14.8); WHITE BLOOD COUNT 8.1 K/UL (4.8-10.8)
[2017-09-23 06:37] LABS: ANION GAP 6 mmol/L (5-15); BLOOD UREA NITROGEN 11 mg/dL (7-18); CALCIUM 8.1 MG/DL (8.5-10.1); CARBON DIOXIDE 31 MMOL/L (21-32); CHLORIDE 110 MMOL/L (98-107); CREATININE 0.9 MG/DL (0.55-1.30); POTASSIUM 4.1 MMOL/L (3.5-5.1); SODIUM 147 MMOL/L (136-145)
[2017-09-23] MEDS: PCA shift volume MISC SCH ×2 (07:16→19:11)
[2017-09-23 08:00] VITALS: BP 131/80
[2017-09-23] MEDS: clonazePAM 0.5mg tab ORAL SCH ×3 (09:04→17:35)
[2017-09-23] MEDS: PARoxetine 20mg tab ORAL SCH (09:11)
[2017-09-23] MEDS ORDERED: Rate Change PCA 1 Each MISC PRN (11:00)
--- NOTE | 2017-09-23 11:13 | General Progress Note ---
Progress Note Progress Note AVSS Ambulatory Comfortable Abdomen soft, mild distention, incisions clean, stoma pink Urine 1550 BCIR ileo 180 Gastrostomy 230 WBC 8100 Hgb 8.3 (on Venofer) Platelets 154,000 Na 147 Cr 0.9 Imp: Ileus anemia Plan; change IV to D5W continue TPN, IV antibiotics, castrejon d/c basal continuous infusion of ROAD CROSSING GUARD f/u labs TOM CARCAMO Sep 23, 2017 11:13
[2017-09-23] MEDS ORDERED: Morphine Sulfate 4mg/ml Inj SUBQ PRN (11:30)
[2017-09-23] MEDS ORDERED: Morphine Sulfate 4mg/ml Inj IVP PRN (11:30)
[2017-09-23] MEDS ORDERED: DiphenhydrAMINE 50mg/ml Inj IVP PRN (11:30)
[2017-09-23] MEDS ORDERED: Naloxone 0.4mg/ml Inj IVP PRN (11:30)
[2017-09-23] MEDS ORDERED: PCA Morphine 1mg/ml 30 ML IV PRN (11:30)
[2017-09-23 12:00] VITALS: BP 127/80
[2017-09-23] MEDS: D5W w/KCl 20mEq 1,000 ML IV SCH (12:34)
[2017-09-23 16:00] VITALS: BP 131/75
[2017-09-23 20:00] VITALS: BP 139/80
[2017-09-23] MEDS: Dyna-Hex 2% Top Sol 2oz TOPIC SCH (20:00)
[2017-09-23] MEDS: Iron Sucrose 100 MG in NS 110 ML IV SCH (21:04)
[2017-09-23] MEDS: TPN IV SCH (21:06)
[2017-09-23] MEDS: FAT EMULSION 20% IV SCH (21:06)
[2017-09-24] VITALS: BP 134/81
[2017-09-24] MEDS: NovoLOG Insulin Flexpen SUBQ SCH ×4 (00:16→18:00)
[2017-09-24] MEDS: Aztreonam Inj 1 GM in D5W 55 ML IVPB SCH ×3 (01:40→17:01)
[2017-09-24 04:00] VITALS: BP 130/80
[2017-09-24 06:36] LABS: BASOPHILS % (AUTO) 0.7 % (0.0-2.0); HEMATOCRIT 25.6 % (37.0-47.0); HEMOGLOBIN 8.8 G/DL (12.0-16.0); LYMPHOCYTES % (AUTO) 7.8 % (20.0-45.0); MEAN CORPUSCULAR VOLUME 96 FL (80-99); MONOCYTES % (AUTO) 8.3 % (1.0-10.0); NEUTROPHILS % (AUTO) 78.3 % (45.0-75.0); PLATELET COUNT 168 K/UL (150-450); RED BLOOD COUNT 2.66 M/UL (4.20-5.40); RED CELL DISTRIBUTION WIDTH 11.8 % (11.6-14.8); WHITE BLOOD COUNT 6.8 K/UL (4.8-10.8)
[2017-09-24 06:40] LABS: ANION GAP 2 mmol/L (5-15); BLOOD UREA NITROGEN 14 mg/dL (7-18); CALCIUM 8.2 MG/DL (8.5-10.1); CARBON DIOXIDE 36 MMOL/L (21-32); CHLORIDE 107 MMOL/L (98-107); CREATININE 0.9 MG/DL (0.55-1.30); POTASSIUM 4.1 MMOL/L (3.5-5.1); SODIUM 145 MMOL/L (136-145)
[2017-09-24] MEDS: PCA shift volume MISC SCH ×2 (07:20→19:13)
[2017-09-24 08:00] VITALS: BP 135/85
[2017-09-24] MEDS: D5W w/KCl 20mEq 1,000 ML IV SCH (08:21)
[2017-09-24] MEDS: PARoxetine 20mg tab ORAL SCH (08:21)
[2017-09-24] MEDS: clonazePAM 0.5mg tab ORAL SCH ×3 (08:21→17:39)
[2017-09-24] MEDS ORDERED: PCA Morphine 1mg/ml 30 ML IV PRN (09:00)
[2017-09-24] MEDS ORDERED: Rate Change PCA 1 Each MISC PRN (09:30)
--- NOTE | 2017-09-24 09:40 | General Progress Note ---
Progress Note Progress Note AVSS doing well overall. Abdomen soft, incisions clean, stoma pink, nolan - scant serous Urine 1500 BCIR ileo 40 Gastrostomy 365 WBC 6800 Hgb 8.8 (stable) NA 145 (down) Imp. Ileus Plan: Continue TPN and NPO d/c urinary Frost in early AM TOM CARCAMO Sep 24, 2017 09:40
[2017-09-24] MEDS ORDERED: Morphine Sulfate 4mg/ml Inj IVP PRN (10:00)
[2017-09-24] MEDS ORDERED: Morphine Sulfate 4mg/ml Inj SUBQ PRN (10:00)
[2017-09-24] MEDS ORDERED: Naloxone 0.4mg/ml Inj IVP PRN (10:00)
[2017-09-24] MEDS ORDERED: DiphenhydrAMINE 50mg/ml Inj IVP PRN (10:00)
[2017-09-24 12:00] VITALS: BP 132/78
[2017-09-24 16:00] VITALS: BP 119/73
[2017-09-24] MEDS: PCA Morphine 1mg/ml 30 ML IV PRN (16:15)
[2017-09-24 19:59] VITALS: BP 136/88
[2017-09-24] MEDS: Iron Sucrose 100 MG in NS 110 ML IV SCH (20:40)
[2017-09-24] MEDS: Dyna-Hex 2% Top Sol 2oz TOPIC SCH (20:40)
[2017-09-24] MEDS: FAT EMULSION 20% IV SCH (20:42)
[2017-09-24] MEDS: TPN IV SCH (20:42)
[2017-09-25] MEDS: NovoLOG Insulin Flexpen SUBQ SCH ×4 (00:08→18:00)
[2017-09-25 00:54] VITALS: BP 130/83
[2017-09-25] MEDS: PCA Morphine 1mg/ml 30 ML IV PRN ×2 (00:54→14:30)
[2017-09-25] MEDS: Aztreonam Inj 1 GM in D5W 55 ML IVPB SCH ×3 (00:59→17:33)
[2017-09-25 04:38] VITALS: BP 123/83
[2017-09-25] MEDS: D5W w/KCl 20mEq 1,000 ML IV SCH (05:33)
[2017-09-25] MEDS: PCA shift volume MISC SCH ×2 (07:19→19:01)
[2017-09-25 08:00] VITALS: BP 134/80
[2017-09-25] MEDS: LORazepam 1mg tab SL PRN ×2 (08:30→17:33)
[2017-09-25] MEDS: clonazePAM 0.5mg tab ORAL SCH ×3 (08:31→17:33)
[2017-09-25] MEDS: PARoxetine 20mg tab ORAL SCH (08:31)
[2017-09-25] MEDS ORDERED: D5W w/KCl 20mEq 1,000 ML IV SCH (09:00)
--- NOTE | 2017-09-25 09:01 | General Progress Note ---
Progress Note Progress Note AVSS Ambulates well. Abdomen soft, healing nicely, nolan scant Urine 2550 BCIR ileo 370 Gastrostomy 440 Imp. slowly resolving ileus Plan; d/c urinary Frost d/c Flagyl continue TPN and npo labs in TOM VALDOVINOS Sep 25, 2017 09:01
[2017-09-25] MEDS ORDERED: Naloxone 0.4mg/ml Inj IVP PRN (09:04)
[2017-09-25] MEDS ORDERED: Rate Change PCA 1 Each MISC PRN (09:15)
[2017-09-25] MEDS ORDERED: Morphine Sulfate 4mg/ml Inj IVP PRN (10:00)
[2017-09-25] MEDS ORDERED: Morphine Sulfate 4mg/ml Inj SUBQ PRN (10:00)
[2017-09-25] MEDS ORDERED: DiphenhydrAMINE 50mg/ml Inj IVP PRN (10:00)
[2017-09-25 12:00] VITALS: BP 130/84
[2017-09-25 16:36] VITALS: BP 127/79
[2017-09-25 20:00] VITALS: BP 134/83
[2017-09-25] MEDS: FAT EMULSION 20% IV SCH (21:20)
[2017-09-25] MEDS: TPN IV SCH (21:20)
[2017-09-25] MEDS: Iron Sucrose 100 MG in NS 110 ML IV SCH (21:21)
[2017-09-25] MEDS: Dyna-Hex 2% Top Sol 2oz TOPIC SCH (21:22)
[2017-09-26] VITALS: BP 130/80
[2017-09-26] MEDS: PCA Morphine 1mg/ml 30 ML IV PRN (00:42)
[2017-09-26] MEDS: Aztreonam Inj 1 GM in D5W 55 ML IVPB SCH (02:01)
[2017-09-26 04:00] VITALS: BP 130/82
[2017-09-26 05:48] LABS: BASOPHILS % (AUTO) 1.3 % (0.0-2.0); EOSINOPHILS % (AUTO) 4.5 % (0.0-3.0); HEMATOCRIT 25.5 % (37.0-47.0); HEMOGLOBIN 8.4 G/DL (12.0-16.0); LYMPHOCYTES % (AUTO) 9.7 % (20.0-45.0); MEAN CORPUSCULAR VOLUME 97 FL (80-99); NEUTROPHILS % (AUTO) 74.6 % (45.0-75.0); PLATELET COUNT 197 K/UL (150-450); RED BLOOD COUNT 2.64 M/UL (4.20-5.40); RED CELL DISTRIBUTION WIDTH 12.2 % (11.6-14.8); WHITE BLOOD COUNT 7.3 K/UL (4.8-10.8)
[2017-09-26] MEDS: NovoLOG Insulin Flexpen SUBQ SCH ×5 (06:00→23:24)
[2017-09-26 06:17] LABS: ALANINE AMINOTRANSFERASE 21 U/L (12-78); ALBUMIN 2.4 G/DL (3.4-5.0); ALBUMIN/GLOBULIN RATIO 0.7 (1.0-2.7); ALKALINE PHOSPHATASE 93 U/L (46-116); ASPARTATE AMINO TRANSFERASE 24 U/L (15-37); BILIRUBIN,TOTAL 0.3 MG/DL (0.2-1.0); BLOOD UREA NITROGEN 17 mg/dL (7-18); CALCIUM 8.5 MG/DL (8.5-10.1); CARBON DIOXIDE 30 MMOL/L (21-32)
[2017-09-26 06:49] LABS: PHOSPHORUS 3.8 MG/DL (2.5-4.9)
[2017-09-26] MEDS: PCA shift volume MISC SCH (07:00)
[2017-09-26 07:01] LABS: CHLORIDE 105 MMOL/L (98-107); SODIUM 143 MMOL/L (136-145)
[2017-09-26 07:04] LABS: ANION GAP 8 mmol/L (5-15)
[2017-09-26 08:00] VITALS: BP 127/81
[2017-09-26] MEDS ORDERED: Lidocaine HCl 2% Jelly 5ml Tube TOPIC PRN (08:45)
--- NOTE | 2017-09-26 08:52 | General Progress Note ---
Progress Note Progress Note AVSS Feeling well overall; ambulates well; voiding well with slight burning, decreasing Abdomen soft, non-distended, right flankk tenderness vs hypersensitivity. 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
[2017-09-26] MEDS: PARoxetine 20mg tab ORAL SCH (08:55)
[2017-09-26] MEDS: clonazePAM 0.5mg tab ORAL SCH ×3 (08:55→17:57)
[2017-09-26] MEDS: oxyCODONE HCL/Acetaminophen 5/325mg ORAL PRN ×3 (09:25→20:52)
[2017-09-26 12:58] VITALS: BP 124/79
[2017-09-26 16:21] VITALS: BP 122/73
[2017-09-26 20:18] VITALS: BP 125/78
[2017-09-26] MEDS: Dyna-Hex 2% Top Sol 2oz TOPIC SCH (20:45)
[2017-09-26] MEDS: Iron Sucrose 100 MG in NS 110 ML IV SCH (21:23)
[2017-09-26] MEDS: FAT EMULSION 20% IV SCH (21:28)
[2017-09-26] MEDS: TPN IV SCH (21:28)
[2017-09-27] VITALS: BP 119/75
[2017-09-27] MEDS: oxyCODONE HCL/Acetaminophen 5/325mg ORAL PRN ×4 (00:59→20:13)
[2017-09-27 06:00] VITALS: BP 120/94
[2017-09-27] MEDS: NovoLOG Insulin Flexpen SUBQ SCH ×3 (06:06→18:47)
--- NOTE | 2017-09-27 08:41 | General Progress Note ---
Progress Note Progress Note AVSS Tolerating clear liquids small amounts Abdomen soft, less right flank tenderness, nolan - nil Urine 2950 BCIR ileo 1220 Gastrostomy 290 Imp: Slowly improving Plan: Continue TPN and clear liquids Gastrostomy 3:3 protocol labs in TOM VALDOVINOS Sep 27, 2017 08:41
[2017-09-27 08:46] VITALS: BP 128/83
[2017-09-27] MEDS: clonazePAM 0.5mg tab ORAL SCH ×3 (09:17→18:43)
[2017-09-27] MEDS: PARoxetine 20mg tab ORAL SCH (09:17)
[2017-09-27 12:00] VITALS: BP 121/78
[2017-09-27 16:11] VITALS: BP 130/76
[2017-09-27 20:00] VITALS: BP 129/81
[2017-09-27] MEDS: Dyna-Hex 2% Top Sol 2oz TOPIC SCH (20:12)
[2017-09-27] MEDS: TPN IV SCH (22:33)
[2017-09-27] MEDS: FAT EMULSION 20% IV SCH (22:33)
[2017-09-28] VITALS: BP 121/73
[2017-09-28] MEDS: oxyCODONE HCL/Acetaminophen 5/325mg ORAL PRN ×4 (00:38→21:16)
[2017-09-28] MEDS: NovoLOG Insulin Flexpen SUBQ SCH ×5 (00:39→23:33)
[2017-09-28] MEDS: LORazepam 1mg tab SL PRN ×2 (01:32→23:18)
[2017-09-28 04:00] VITALS: BP 106/66
[2017-09-28 06:53] LABS: ANION GAP 4 mmol/L (5-15); BLOOD UREA NITROGEN 17 mg/dL (7-18); CALCIUM 8.8 MG/DL (8.5-10.1); CARBON DIOXIDE 33 MMOL/L (21-32); CHLORIDE 104 MMOL/L (98-107); POTASSIUM 3.7 MMOL/L (3.5-5.1); SODIUM 141 MMOL/L (136-145)
[2017-09-28 07:06] LABS: BASOPHILS % (AUTO) 1.4 % (0.0-2.0); EOSINOPHILS % (AUTO) 6.6 % (0.0-3.0); HEMATOCRIT 26.9 % (37.0-47.0); HEMOGLOBIN 8.9 G/DL (12.0-16.0); LYMPHOCYTES % (AUTO) 12.3 % (20.0-45.0); MEAN CORPUSCULAR VOLUME 96 FL (80-99); MONOCYTES % (AUTO) 14.6 % (1.0-10.0); NEUTROPHILS % (AUTO) 65.1 % (45.0-75.0); PLATELET COUNT 235 K/UL (150-450); RED BLOOD COUNT 2.81 M/UL (4.20-5.40); RED CELL DISTRIBUTION WIDTH 12.1 % (11.6-14.8); WHITE BLOOD COUNT 7.5 K/UL (4.8-10.8)
[2017-09-28 08:00] VITALS: BP 124/73
--- NOTE | 2017-09-28 08:07 | General Progress Note ---
Progress Note Progress Note AVSS Tolerated clear liquid diet with gastrostomy 3:3 protocol. Had some blood from perineum - recurring problem following proctectomy with J pouch resection in 2015 - happens intermittently Abdomen soft, healing nicely Perineum - 5mm opening in scar with slight blood tinge, no active bleeding Urine 2400 BCIR ileo 1240 Gastrostomy 640 WBC 7500 Hgb 8.9 BMP - wnl Imp: Slowly improving Plan: full liquid diet gastrostomy 5:1 protocol Continue TPN Will use AgNO3 applicators for perineum TOM CARCAMO Sep 28, 2017 08:07
[2017-09-28] MEDS: PARoxetine 20mg tab ORAL SCH (08:34)
[2017-09-28] MEDS: clonazePAM 0.5mg tab ORAL SCH ×3 (08:35→17:37)
[2017-09-28] MEDS: Silver Nitrate Stick TOPIC SCH (09:50)
[2017-09-28 12:00] VITALS: BP 115/69
[2017-09-28 16:00] VITALS: BP 114/72
[2017-09-28 20:00] VITALS: BP 112/76
[2017-09-28] MEDS ORDERED: Phytonadione 10 mg/mL 1ml amp SUBQ SCH (21:00)
[2017-09-28] MEDS ORDERED: Iron Sucrose 100 MG in NS 55 ML IV SCH (21:00)
[2017-09-28] MEDS: Dyna-Hex 2% Top Sol 2oz TOPIC SCH (21:11)
[2017-09-28] MEDS: TPN IV SCH (21:13)
[2017-09-28] MEDS: FAT EMULSION 20% IV SCH (21:13)
[2017-09-28] MEDS ORDERED: NS Irrig 1000ml ONE (21:23)
[2017-09-29] VITALS: BP 148/75
[2017-09-29 04:00] VITALS: BP 118/79
[2017-09-29] MEDS: NovoLOG Insulin Flexpen SUBQ SCH ×4 (06:29→23:58)
[2017-09-29] MEDS: oxyCODONE HCL/Acetaminophen 5/325mg ORAL PRN ×4 (07:56→22:47)
[2017-09-29] MEDS: clonazePAM 0.5mg tab ORAL SCH ×3 (07:56→17:56)
[2017-09-29 08:00] VITALS: BP 134/78
[2017-09-29] MEDS: PARoxetine 20mg tab ORAL SCH (08:02)
--- NOTE | 2017-09-29 08:42 | General Progress Note ---
Progress Note Progress Note AVSS doing well with full liquid diet and gastrostomy 5:1 protocol No further perineal bleeding - she states this has been happening once every few months since 2014 proctectomy Abdomen soft, healing nicely, nolan scant Perineum with small sinus tract - cauterized with silver nitrate applicator Urine 2000cc BCIR ileo 2030 Imp. Improving Large volume ileostomy output Plan: BCIR low residue diet Plug gastrostomy continuously stool for C. Diff toxin continue TPN another 24-48 hours labs in TOM VALDOVINOS Sep 29, 2017 08:42
[2017-09-29] MEDS: Silver Nitrate Stick TOPIC SCH (09:00)
[2017-09-29] MEDS: LORazepam 1mg tab SL PRN ×3 (11:23→23:58)
[2017-09-29 12:00] VITALS: BP 124/77
[2017-09-29 16:00] VITALS: BP 126/75
[2017-09-29 20:00] VITALS: BP 113/71
[2017-09-29] MEDS: Dyna-Hex 2% Top Sol 2oz TOPIC SCH (21:14)
[2017-09-29] MEDS: Iron Sucrose 100 MG in NS 110 ML IV SCH (21:15)
[2017-09-29] MEDS: TPN IV SCH (21:17)
[2017-09-29] MEDS: FAT EMULSION 20% IV SCH (21:17)
[2017-09-30] VITALS: BP 118/68
[2017-09-30 04:00] VITALS: BP 126/72
[2017-09-30 04:48] LABS: BASOPHILS % (AUTO) 1.5 % (0.0-2.0); EOSINOPHILS % (AUTO) 6.7 % (0.0-3.0); HEMATOCRIT 27.3 % (37.0-47.0); HEMOGLOBIN 8.7 G/DL (12.0-16.0); LYMPHOCYTES % (AUTO) 9.8 % (20.0-45.0); MEAN CORPUSCULAR VOLUME 97 FL (80-99); MONOCYTES % (AUTO) 12.5 % (1.0-10.0); NEUTROPHILS % (AUTO) 69.5 % (45.0-75.0); PLATELET COUNT 275 K/UL (150-450); RED CELL DISTRIBUTION WIDTH 12.3 % (11.6-14.8); WHITE BLOOD COUNT 9.7 K/UL (4.8-10.8)
[2017-09-30 05:29] LABS: ALANINE AMINOTRANSFERASE 36 U/L (12-78); ALBUMIN 2.4 G/DL (3.4-5.0); ALBUMIN/GLOBULIN RATIO 0.5 (1.0-2.7); ALKALINE PHOSPHATASE 202 U/L (46-116); ANION GAP 5 mmol/L (5-15); ASPARTATE AMINO TRANSFERASE 24 U/L (15-37); BILIRUBIN,TOTAL 0.2 MG/DL (0.2-1.0); BLOOD UREA NITROGEN 19 mg/dL (7-18); CALCIUM 8.7 MG/DL (8.5-10.1); CARBON DIOXIDE 29 MMOL/L (21-32); CHLORIDE 105 MMOL/L (98-107); CREATININE 1.1 MG/DL (0.55-1.30); POTASSIUM 4.1 MMOL/L (3.5-5.1); SODIUM 139 MMOL/L (136-145)
[2017-09-30] MEDS: NovoLOG Insulin Flexpen SUBQ SCH ×3 (05:33→18:09)
[2017-09-30 08:00] VITALS: BP 113/70
[2017-09-30] MEDS: PARoxetine 20mg tab ORAL SCH (08:43)
[2017-09-30] MEDS: oxyCODONE HCL/Acetaminophen 5/325mg ORAL PRN ×3 (08:44→22:08)
[2017-09-30] MEDS: clonazePAM 0.5mg tab ORAL SCH ×3 (08:44→18:02)
[2017-09-30] MEDS: Silver Nitrate Stick TOPIC SCH (08:45)
[2017-09-30 12:00] VITALS: BP 131/64
--- NOTE | 2017-09-30 13:03 | General Progress Note ---
Progress Note Progress Note Surgery: (covering for. Dr. Oliva) No acute events. states she feels well. tolerating diet well and able to complete 100% thus far. no n/v/f/c. good output. Afebrile, HD stable, labs reviewed. mild elevation in alk phos. Abdomen soft, non tender, non distended, incisional discomfort, g tube site clean, ostomy viable with drainage catheter, nolan drain site clean without significant drainage. mild yellow cloudy serous drainage from prior ileostomy site. no perineal drainage. midline wound c/d/i. nolan drain removed at bedside 3 janell removed from mid portion of prior ileostomy site and drainage evacuated. site irrigated and clean. small gauze packing inserted. oral intake 1220 cc urine output 700 cc ostomy 670 cc (volume decreased as compared to prior. catheter/drainage functional without obstruction. no change in physical exam or symptoms.) Imp. Improving ileostomy output volume decreased Plan: BCIR low residue diet Plug gastrostomy continuously wean TPN and d/c after this bag. do not reorder dressing prn. will change packing tomorrow and evaluate if need to continue. labs in Claudio Hough Sep 30, 2017 13:03
[2017-09-30 16:00] VITALS: BP 119/72
[2017-09-30 20:00] VITALS: BP 93/66
[2017-09-30] MEDS: Iron Sucrose 100 MG in NS 110 ML IV SCH (20:43)
[2017-09-30] MEDS: Dyna-Hex 2% Top Sol 2oz TOPIC SCH (20:44)
[2017-09-30] MEDS: LORazepam 1mg tab SL PRN (23:46)
[2017-10-01] VITALS: BP 105/67
[2017-10-01 04:00] VITALS: BP 96/60
[2017-10-01 05:53] LABS: BASOPHILS % (AUTO) 1.1 % (0.0-2.0); EOSINOPHILS % (AUTO) 2.8 % (0.0-3.0); HEMATOCRIT 28.3 % (37.0-47.0); HEMOGLOBIN 9.8 G/DL (12.0-16.0); LYMPHOCYTES % (AUTO) 5.2 % (20.0-45.0); MEAN CORPUSCULAR VOLUME 96 FL (80-99); MONOCYTES % (AUTO) 8.6 % (1.0-10.0); NEUTROPHILS % (AUTO) 82.3 % (45.0-75.0); PLATELET COUNT 319 K/UL (150-450); RED BLOOD COUNT 2.94 M/UL (4.20-5.40); RED CELL DISTRIBUTION WIDTH 12.2 % (11.6-14.8); WHITE BLOOD COUNT 17.8 K/UL (4.8-10.8)
[2017-10-01 05:58] LABS: ALANINE AMINOTRANSFERASE 45 U/L (12-78); ALBUMIN 2.7 G/DL (3.4-5.0); ALBUMIN/GLOBULIN RATIO 0.6 (1.0-2.7); ALKALINE PHOSPHATASE 231 U/L (46-116); ANION GAP 7 mmol/L (5-15); ASPARTATE AMINO TRANSFERASE 26 U/L (15-37); BILIRUBIN,TOTAL 0.4 MG/DL (0.2-1.0); BLOOD UREA NITROGEN 17 mg/dL (7-18); CALCIUM 8.7 MG/DL (8.5-10.1); CARBON DIOXIDE 28 MMOL/L (21-32); CHLORIDE 100 MMOL/L (98-107); CREATININE 1.2 MG/DL (0.55-1.30); POTASSIUM 4.3 MMOL/L (3.5-5.1); SODIUM 135 MMOL/L (136-145)
[2017-10-01 08:00] VITALS: BP 113/59
[2017-10-01] MEDS: clonazePAM 0.5mg tab ORAL SCH ×3 (08:46→17:48)
[2017-10-01] MEDS: Silver Nitrate Stick TOPIC SCH (08:47)
[2017-10-01] MEDS: PARoxetine 20mg tab ORAL SCH (08:47)
--- NOTE | 2017-10-01 10:39 | General Progress Note ---
Progress Note Progress Note T100.8 VSS c/o cramping and pain with voiding. Had bleeding from perineal sinus tract again from surgery in 2015 (per patient chronic recurring problem) Abdomen soft, flat. Open wound from Ying ileostomy takedown is clean without drainage. Urine 1900 BCIR ileo 1620 (c. diff negative) WBC 17,800 Hgb 9.8 BUN 17 Cr 1.2 Albumin 2.7 Imp: Fever ? etiology (intra-abdomina? PIC line?) Dehydration recurring perineal sinus tract bleeding Plan: STAT CT scan abd+pelvis with oral and IV contrast U/A and Urine C&S IV fluids Blood cultures for recurrent fever If CT negative will remove PIC line and start peripheral IV Maintain continuous drainage of Hernandez Continent Ileostomy TOM CARCAMO Oct 01, 2017 10:39
[2017-10-01] MEDS: D5 1/2NS w/KCl 20mEq 1,000 ML IV SCH ×2 (11:03→21:05)
[2017-10-01] MEDS: oxyCODONE HCL/Acetaminophen 5/325mg ORAL PRN ×2 (11:21→19:54)
[2017-10-01 11:50] VITALS: BP 93/58
[2017-10-01 12:50] LABS: APPEARANCE,URINE CLEAR; BILIRUBIN, URINE NEGATIVE (NEGATIVE); COLOR,URINE PALE YELLOW; GLUCOSE, URINE (UA) NEGATIVE (NEGATIVE); KETONES,URINE NEGATIVE (NEGATIVE); LEUKOCYTE ESTERASE ,URINE NEGATIVE (NEGATIVE); NITRITE,URINE NEGATIVE (NEGATIVE); PH,URINE 6.5 (4.5-8.0); PROTEIN,URINE NEGATIVE (NEGATIVE); UROBILINOGEN,URINE NORMAL MG/DL (0.0-1.0)
[2017-10-01] MEDS: Clindamycin 600mg 50 ML IV SCH ×2 (14:38→21:05)
[2017-10-01] MEDS: Gentamicin inj 320 MG in NS 110 ML IVPB SCH (15:04)
[2017-10-01 16:00] VITALS: BP 90/58
[2017-10-01 20:10] VITALS: BP 89/57
[2017-10-01] MEDS: Dyna-Hex 2% Top Sol 2oz TOPIC SCH (21:04)
[2017-10-01] MEDS: Iron Sucrose 100 MG in NS 110 ML IV SCH (21:05)
[2017-10-01] MEDS ORDERED: Heplock Flush 100 units/ml 3 ml syr INJ SCH (23:00)
[2017-10-02] VITALS (7 sets, daily range): BP systolic 89–112; BP diastolic 53–68
[2017-10-02] MEDS: Clindamycin 600mg 50 ML IV SCH ×3 (05:32→21:57)
[2017-10-02] MEDS: D5 1/2NS w/KCl 20mEq 1,000 ML IV SCH ×2 (05:34→10:40)
[2017-10-02] MEDS: Ascorbic Acid 500mg tab ORAL PRN (06:12)
[2017-10-02 06:58] LABS: BASOPHILS % (AUTO) 1.2 % (0.0-2.0); HEMATOCRIT 26.3 % (37.0-47.0); HEMOGLOBIN 8.7 G/DL (12.0-16.0); LYMPHOCYTES % (AUTO) 8.3 % (20.0-45.0); MEAN CORPUSCULAR VOLUME 96 FL (80-99); MONOCYTES % (AUTO) 6.2 % (1.0-10.0); NEUTROPHILS % (AUTO) 81.4 % (45.0-75.0); PLATELET COUNT 307 K/UL (150-450); RED BLOOD COUNT 2.74 M/UL (4.20-5.40); RED CELL DISTRIBUTION WIDTH 12.1 % (11.6-14.8); WHITE BLOOD COUNT 15.9 K/UL (4.8-10.8)
[2017-10-02 07:18] LABS: ANION GAP 6 mmol/L (5-15); BLOOD UREA NITROGEN 16 mg/dL (7-18); CALCIUM 8.1 MG/DL (8.5-10.1); CARBON DIOXIDE 28 MMOL/L (21-32); CHLORIDE 99 MMOL/L (98-107); CREATININE 1.2 MG/DL (0.55-1.30); POTASSIUM 4.4 MMOL/L (3.5-5.1); SODIUM 133 MMOL/L (136-145)
[2017-10-02] MEDS: oxyCODONE HCL/Acetaminophen 5/325mg ORAL PRN ×3 (07:39→20:01)
[2017-10-02] MEDS: clonazePAM 0.5mg tab ORAL SCH ×3 (08:53→17:50)
[2017-10-02] MEDS: Silver Nitrate Stick TOPIC SCH (08:53)
[2017-10-02] MEDS: PARoxetine 20mg tab ORAL SCH (08:53)
[2017-10-02] MEDS ORDERED: NORCO 5-325 TA1 EACH ORAL (09:07)
--- NOTE | 2017-10-02 10:24 | Diagnostic Imaging Report ---
Indication: Abdominal pain Technique: Continuous helical transaxial imaging of the abdomen and pelvis was obtained from the lung bases to the pubic symphysis during intravenous contrast administration. Coronal 2-D reformats were also obtained. Study obtained in a Siemens sensation [address] Automatic Exposure Control was utilized. Total Dose length Product (DLP): [address] Dose Index Volume (CTDIvol): 14 mGy Comparison: None Findings: Oral contrast was given and there is no evidence of bowel obstruction with good opacification of the catheter in the pouch. No compelling evidence for abscess. There is a small amount of perirectal free fluid in the pelvis. Preliminary report by [facility] described a 3.5 x 3 cm air-contrast collection, which was interpreted as being concerning for abscess or fistula. Doubt this possibility. Almost certainly, this is the surgically formed pouch seen in the context of a continent ileostomy. If there is concern for abscess, a follow-up CT study may be of benefit. Mild subsegmental atelectasis noted at the right lung base. There are multiple liver cysts.. Trace free fluid noted in the upper abdomen not unexpected given recent surgery. Anterior abdominal wall scar with skin janell still noted. Gastrostomy noted. There is an ileostomy in the right right hemipelvis with a catheter. Arterial calcifications are present. Multiple cysts noted in the left kidney. Left total hip prosthesis noted. Impression: Status post recent abdominal surgery with postsurgical changes as described above. No bowel obstruction or compelling evidence for abscess demonstrated on this examination. Small amount of free fluid within the pelvis is noted. Continent ileostomy demonstrated with good oral contrast opacification. Suggest repeating the study as a follow-up exam if there is concern for abscess or fistula as suggested by the preliminary [facility] report. Multiple liver cysts and renal cysts. Gastrostomy Left hip prosthesis. The CT scanner at [facility] is accredited by the [employer] and the scans are performed using dose optimization techniques as appropriate to a performed exam including Automatic Exposure control.
--- NOTE | 2017-10-02 10:34 | General Progress Note ---
Progress Note Progress Note Afebrile just for 24 hours. Feeling better. Started yesterday on Gentamicin and Clindamycin IV Ambulating and eating BCIR diet okay Abdomen soft, flat, non-tender, incision clean, RLQ incision open in center with no drainage Urine 2200 BCIR ileo 1830 (including po contrast) WBC down 15,900 Hgb 8.7 (on Venofer) BUN/Cr 16/1,2 - no change U/A - wnl CT scan: small gas and fluid collection adjacent to tip of continent ileostomy catheter in pouch r/o localized walled-off confined perforation draining back into pouch? Imp. R/O intra-abdominal abscess and r/o confined perforation of pouch, or this may be part of the pouch anatomy Plan: Gentle gastrograffin continent ileostomy pouchogram in AM Continue IV antibiotics (gent/clind) f/u labs maintain continuous drainage of Hernandez continent ileostomy pouch TOM CARCAMO Oct 02, 2017 10:34
[2017-10-02] MEDS ORDERED: LORazepam 1mg tab SL PRN ×2 (11:00→21:00)
--- NOTE | 2017-10-02 11:03 | Diagnostic Imaging Report ---
Indication: Follow-up of the collection adjacent to ileostomy Technique: Continuous helical transaxial imaging of the pelvis was obtained from the iliac crest to the pubic symphysis. Coronal 2-D reformats were also obtained. Study obtained in a Siemens sensation [address] Intravenous non-ionic contrast was not administered. Total Dose length Product (DLP): 434.[address] Dose Index Volume (CTDIvol): 12.95 mGy Comparison: CT abdomen and pelvis 10/01/2017 at 12:31 Findings: Current study performed 15:49 as a follow-up. The purpose of this study was to follow up a air and contrast filled collection adjacent to the tip of the ileostomy catheter within the pelvis. All of the contrast has cleared from bowel as well as from within the collection, which as I stated on the earlier report most likely represents part of the continent ileostomy pouch. Moderate amount of contrast excreted within the urinary bladder. The wall of the bladder is slightly irregular may be due to trabeculation and chronic cystitis. Please correlate clinically. IMPRESSION: Clearance of contrast from the continent ileostomy as expected. No compelling evidence for abscess or fistula. Trabeculation of the urinary bladder wall consistent with chronic cystitis. Please correlate. The CT scanner at [facility] is accredited by the [employer] and the scans are performed using dose optimization techniques as appropriate to a performed exam including Automatic Exposure control.
[2017-10-02] MEDS: Gentamicin inj 320 MG in NS 110 ML IVPB SCH (15:18)
[2017-10-02] MEDS: Dyna-Hex 2% Top Sol 2oz TOPIC SCH (20:01)
[2017-10-02] MEDS: Iron Sucrose 100 MG in NS 110 ML IV SCH (20:47)
[2017-10-03] VITALS: BP 91/53
[2017-10-03] MEDS: oxyCODONE HCL/Acetaminophen 5/325mg ORAL PRN ×3 (03:16→19:38)
[2017-10-03 04:00] VITALS: BP 90/59
[2017-10-03] MEDS: Clindamycin 600mg 50 ML IV SCH ×3 (05:32→21:54)
[2017-10-03 05:48] LABS: BASOPHILS % (AUTO) 1.3 % (0.0-2.0); EOSINOPHILS % (AUTO) 4.5 % (0.0-3.0); HEMATOCRIT 26.5 % (37.0-47.0); HEMOGLOBIN 8.6 G/DL (12.0-16.0); LYMPHOCYTES % (AUTO) 8.9 % (20.0-45.0); MEAN CORPUSCULAR VOLUME 97 FL (80-99); MONOCYTES % (AUTO) 8.3 % (1.0-10.0); PLATELET COUNT 317 K/UL (150-450); RED BLOOD COUNT 2.73 M/UL (4.20-5.40); RED CELL DISTRIBUTION WIDTH 11.8 % (11.6-14.8); WHITE BLOOD COUNT 12.6 K/UL (4.8-10.8)
[2017-10-03 06:12] LABS: ANION GAP 7 mmol/L (5-15); BLOOD UREA NITROGEN 19 mg/dL (7-18); CARBON DIOXIDE 24 MMOL/L (21-32); CHLORIDE 101 MMOL/L (98-107); CREATININE 1.3 MG/DL (0.55-1.30); POTASSIUM 4.4 MMOL/L (3.5-5.1); SODIUM 132 MMOL/L (136-145)
[2017-10-03] MEDS: D5 1/2NS w/KCl 20mEq 1,000 ML IV SCH (06:33)
[2017-10-03 07:56] VITALS: BP 87/53
[2017-10-03] MEDS: PARoxetine 20mg tab ORAL SCH (08:17)
[2017-10-03] MEDS: clonazePAM 0.5mg tab ORAL SCH ×3 (08:17→18:53)
--- NOTE | 2017-10-03 08:29 | General Progress Note ---
Progress Note Progress Note AVSS - no fever x 48hrs Feels well and eating, ambulating well. Abdomen soft, flat, non-tender. Midline healing well; RLQ incision open and clean Urine 2500 BCIR ileo 1820 WBC down 12,600 Hgb 8.6 Na 132 Cr up 1.3 Imp. r/o intra-abdominal abscess Plan: Gastrograffin Continent Ileostomy Pouchogram this AM change IV to D5NS continue gent+clinda TOM CARCAMO Oct 03, 2017 08:29
[2017-10-03] MEDS: Silver Nitrate Stick TOPIC SCH (09:00)
[2017-10-03 11:58] VITALS: BP 91/75
--- NOTE | 2017-10-03 13:48 | Diagnostic Imaging Report ---
Indication: Continent ileostomy. Abnormal CT showing possible extravasation. PROCEDURE: Water-soluble contrast was allowed to flow retrograde into indwelling catheter ileostomy. Fluoroscopic imaging then performed in real-time. Approximately 100 cc contrast instilled and allowed to drain with postdrain imaging obtained. Images show a ileal pouch and loop of small bowel mucosa, seen to peristalse and real-time. A focus of extravasation was not seen. Postdrainage images show complete resolution of contrast material from the pouch and small bowel. IMPRESSION: No evidence of extraluminal contrast extravasation.
[2017-10-03] MEDS: Gentamicin inj 320 MG in NS 110 ML IVPB SCH (15:11)
[2017-10-03 16:00] VITALS: BP 95/62
[2017-10-03] MEDS: Lomotil 2.5mg tab ORAL SCH (16:30)
[2017-10-03] MEDS ORDERED: NS Irrig 1000ml ONE (18:11)
[2017-10-03] MEDS ORDERED: Tubing IV Secondary IV ONE (18:11)
[2017-10-03 20:00] VITALS: BP 96/62
[2017-10-04] VITALS (7 sets, daily range): BP systolic 83–105; BP diastolic 52–62
[2017-10-04] MEDS: Clindamycin 600mg 50 ML IV SCH ×2 (06:03→13:50)
[2017-10-04] MEDS: Lomotil 2.5mg tab ORAL SCH ×3 (06:03→16:28)
[2017-10-04] MEDS: oxyCODONE HCL/Acetaminophen 5/325mg ORAL PRN ×4 (06:16→23:58)
[2017-10-04 07:00] LABS: BASOPHILS % (AUTO) 1.4 % (0.0-2.0); EOSINOPHILS % (AUTO) 4.8 % (0.0-3.0); HEMATOCRIT 27.7 % (37.0-47.0); HEMOGLOBIN 9.2 G/DL (12.0-16.0); LYMPHOCYTES % (AUTO) 7.7 % (20.0-45.0); MEAN CORPUSCULAR VOLUME 97 FL (80-99); MONOCYTES % (AUTO) 8.3 % (1.0-10.0); NEUTROPHILS % (AUTO) 77.8 % (45.0-75.0); PLATELET COUNT 392 K/UL (150-450); RED BLOOD COUNT 2.84 M/UL (4.20-5.40); RED CELL DISTRIBUTION WIDTH 12.1 % (11.6-14.8); WHITE BLOOD COUNT 10.1 K/UL (4.8-10.8)
[2017-10-04 07:02] LABS: ANION GAP 9 mmol/L (5-15); BLOOD UREA NITROGEN 20 mg/dL (7-18); CALCIUM 8.6 MG/DL (8.5-10.1); CARBON DIOXIDE 23 MMOL/L (21-32); CHLORIDE 104 MMOL/L (98-107); CREATININE 1.3 MG/DL (0.55-1.30); SODIUM 136 MMOL/L (136-145)
[2017-10-04] MEDS: PARoxetine 20mg tab ORAL SCH (08:43)
[2017-10-04] MEDS: clonazePAM 0.5mg tab ORAL SCH ×3 (08:43→17:29)
[2017-10-04] MEDS: Silver Nitrate Stick TOPIC SCH (08:44)
--- NOTE | 2017-10-04 08:47 | General Progress Note ---
Progress Note Progress Note AVSS Continues to feel well. PIC line removed yesterday - getting peripheral IV fluids due to excessive ileostomy output Abdomen soft, healing well Urine 1700 BCIR ileo 1740 All cultures negative WBC 10,100 Hgb 9.2 Na up 136 K 5.0 BUN/Cr still up 20/1.3 Imp. High output ileostomy Plan: Lomotil with each meal continue IV fluids maintain continous drainage of Hernandez pouch anticipate beginning RN teaching self-intubations in AM f/u labs will remove gastrostomy and janell later today TOM CARCAMO Oct 04, 2017 08:47
[2017-10-04] MEDS: D5NS 1,000 ML IV SCH ×2 (09:04→22:30)
--- NOTE | 2017-10-04 15:02 | General Progress Note ---
Progress Note Progress Note Jeevan removed and steristrips applied. Will teach patient to care for small open wound at site of prior ileostomy (she has done this before) Gastrostomy removed Imp. Improved Plan: d/c antibiotics begin RN teaching/supervision of David Pouch self-intubations in AM f/u labs in AM - may need to resume her pre-admission sodium bicarbonate tablets QID when stop IV fluids TOM CARCAMO Oct 04, 2017 15:02
[2017-10-04] MEDS ORDERED: Gentamicin inj 320 MG in NS 110 ML IVPB SCH (15:15)
[2017-10-04] MEDS ORDERED: NS Irrig 1000ml ONE (15:18)
[2017-10-04] MEDS ORDERED: D5NS 1000ml IV ONE (15:18)
[2017-10-05] VITALS: BP 90/56
[2017-10-05 04:00] VITALS: BP 91/59
[2017-10-05] MEDS: Lomotil 2.5mg tab ORAL SCH ×3 (05:53→16:45)
[2017-10-05 05:54] LABS: ANION GAP 9 mmol/L (5-15); BLOOD UREA NITROGEN 20 mg/dL (7-18); CALCIUM 8.4 MG/DL (8.5-10.1); CARBON DIOXIDE 22 MMOL/L (21-32); CHLORIDE 108 MMOL/L (98-107); CREATININE 1.3 MG/DL (0.55-1.30); POTASSIUM 4.5 MMOL/L (3.5-5.1); SODIUM 139 MMOL/L (136-145)
[2017-10-05 05:55] LABS: BASOPHILS % (AUTO) 1.8 % (0.0-2.0); EOSINOPHILS % (AUTO) 5.3 % (0.0-3.0); HEMATOCRIT 26.5 % (37.0-47.0); HEMOGLOBIN 8.9 G/DL (12.0-16.0); LYMPHOCYTES % (AUTO) 10.2 % (20.0-45.0); MEAN CORPUSCULAR VOLUME 98 FL (80-99); MONOCYTES % (AUTO) 9.9 % (1.0-10.0); NEUTROPHILS % (AUTO) 72.9 % (45.0-75.0); PLATELET COUNT 403 K/UL (150-450); RED BLOOD COUNT 2.69 M/UL (4.20-5.40); RED CELL DISTRIBUTION WIDTH 12.2 % (11.6-14.8); WHITE BLOOD COUNT 9.1 K/UL (4.8-10.8)
[2017-10-05] MEDS: oxyCODONE HCL/Acetaminophen 5/325mg ORAL PRN ×3 (07:12→21:15)
[2017-10-05 08:00] VITALS: BP 107/66
[2017-10-05] MEDS: clonazePAM 0.5mg tab ORAL SCH ×3 (08:32→17:30)
[2017-10-05] MEDS: PARoxetine 20mg tab ORAL SCH (08:32)
[2017-10-05] MEDS: Silver Nitrate Stick TOPIC SCH (09:00)
--- NOTE | 2017-10-05 09:01 | General Progress Note ---
Progress Note Progress Note Afebrile off antibiotics and feels well. Eating 70-100% of meals. Abdomen soft, flat, wound and G-tube sites clean Urine 3800 BCIR ileo 1920 despite lomotil with each meal WBC 9100 Hgb 8.9 stable BUN/Cr unchanged 20/1.3 - both wnl Sodium 139 Imp. Improved Plan: BCIR catheter removed - slight lateral retraction of stoma Begin RN education/supervision of BCIR self-intubations q2h from awakening to hs and 0200 and prn d/c IV fluids continue strict I&O resume pre-admission NaHCO3 650pm po 4x daily f/u labs in TOM VALDOVINOS Oct 05, 2017 09:01
[2017-10-05] MEDS ORDERED: Fluconazole 100mg tab ORAL ONE (09:30)
[2017-10-05] MEDS: Sodium Bicarbonate 650mg Tab ORAL SCH ×4 (09:34→20:03)
[2017-10-05 12:00] VITALS: BP 117/70
[2017-10-05] MEDS ORDERED: NS Irrig 1000ml ONE (14:31)
[2017-10-05] MEDS ORDERED: D5NS 1000ml IV ONE (14:31)
[2017-10-05 16:00] VITALS: BP 105/65
[2017-10-05 20:54] VITALS: BP 99/65
[2017-10-06] VITALS (7 sets, daily range): BP systolic 102–122; BP diastolic 60–71
[2017-10-06] MEDS: oxyCODONE HCL/Acetaminophen 5/325mg ORAL PRN ×4 (02:16→21:52)
[2017-10-06] MEDS: Lomotil 2.5mg tab ORAL SCH ×4 (05:45→17:00)
[2017-10-06] MEDS: Ascorbic Acid 500mg tab ORAL PRN ×2 (06:08→17:00)
[2017-10-06 06:27] LABS: BASOPHILS % (AUTO) 2.4 % (0.0-2.0); EOSINOPHILS % (AUTO) 8.1 % (0.0-3.0); HEMATOCRIT 28.9 % (37.0-47.0); HEMOGLOBIN 9.5 G/DL (12.0-16.0); LYMPHOCYTES % (AUTO) 13.8 % (20.0-45.0); MEAN CORPUSCULAR VOLUME 98 FL (80-99); MONOCYTES % (AUTO) 7.5 % (1.0-10.0); NEUTROPHILS % (AUTO) 68.2 % (45.0-75.0); PLATELET COUNT 443 K/UL (150-450); RED BLOOD COUNT 2.96 M/UL (4.20-5.40); RED CELL DISTRIBUTION WIDTH 12.3 % (11.6-14.8); WHITE BLOOD COUNT 7.2 K/UL (4.8-10.8)
[2017-10-06 06:56] LABS: ALANINE AMINOTRANSFERASE 31 U/L (12-78); ALBUMIN 2.8 G/DL (3.4-5.0); ALBUMIN/GLOBULIN RATIO 0.6 (1.0-2.7); ALKALINE PHOSPHATASE 187 U/L (46-116); ANION GAP 8 mmol/L (5-15); ASPARTATE AMINO TRANSFERASE 19 U/L (15-37); BILIRUBIN,TOTAL 0.2 MG/DL (0.2-1.0); BLOOD UREA NITROGEN 12 mg/dL (7-18); CALCIUM 8.9 MG/DL (8.5-10.1); CARBON DIOXIDE 26 MMOL/L (21-32); CHLORIDE 105 MMOL/L (98-107); CREATININE 1.2 MG/DL (0.55-1.30); POTASSIUM 4.3 MMOL/L (3.5-5.1); SODIUM 139 MMOL/L (136-145)
[2017-10-06] MEDS: clonazePAM 0.5mg tab ORAL SCH ×3 (08:08→17:00)
[2017-10-06] MEDS: Sodium Bicarbonate 650mg Tab ORAL SCH ×4 (08:08→21:51)
[2017-10-06] MEDS: PARoxetine 20mg tab ORAL SCH (08:09)
--- NOTE | 2017-10-06 08:44 | General Progress Note ---
Progress Note Progress Note AVSS Learning intubation techniques well. Eating well with no GI complaints Abdomen soft, flat, Gastrostomy site healing well, RLQ wound clean and granulating, stoma lateral separation at 9:00 is clean and epithelializing Urine 3500 BCIR ileo 1000 (taking lomotil with each meal) WBC 7200 Hgb 9.5 BUN/Cr down 12/1.2 Albumin up 2.8 Imp. Improving Plan: Continue RN supervised BCIR self-intubations q2h am to hs and 0200 continue I&) Rx Percocet 5/325 #40 Lomotil tablets 2.5mg #60 Discharge supplies provided Anticipate d/c in TOM VALDOVINOS Oct 06, 2017 08:44
[2017-10-07 04:00] VITALS: BP 110/64
[2017-10-07] MEDS: Lomotil 2.5mg tab ORAL SCH (05:51)
[2017-10-07] MEDS: oxyCODONE HCL/Acetaminophen 5/325mg ORAL PRN (05:52)
[2017-10-07 08:00] VITALS: BP 111/65
--- NOTE | 2017-10-07 10:57 | Discharge Summary ---
Discharge Summary Hospital Course Date of Admission Sep 19, 2017 at 08:35 Date of Discharge Oct 07, 2017 at 08:35 Admitting Diagnosis malfunctioning ileostomy Reason for Hospitalization: elective surgery HPI Annabelle Clifford is a 61 year old female who was admitted on Sep 19, 2017 at 08:35 for Malfunctioning Ileostomy Procedures s/p 09/20/[address] Oliva 1. Hernandez continent ileostomy. 2. Catheter gastrostomy. 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 Frost ( pelvic dissection) output from Frost, ileostomy, gastrostomy and Miranda drain closely monitored encourage ambulation Venofer IV 5 days nothing by mouth status continued except ice chips on September 25 Frost catheter discontinued Flagyl discontinued ileus slowly resolving On 09/26 patient started on CL diet G-tube was continued to drainage GAS ENGINE REPAIRER discontinued and patient started on Percocet as needed Azactam discontinued TPN continued patient was slowly improving On September 28 started on full liquid diet Gastrostomy 5:1 protocol TPN continued AgNO3 applicators for perineum on September 29 started BCIR low residue diet large ileostomy output noted Stool for C dif was negative Plan to continue TPN plug gastrostomy tube continuously on September 30 , Miranda drain was discontinued 3 jeevan were removed Ileostomy output was decreasing Started to wean patient from TPN and stop after current bag completed On October 01 noted leukocytosis, WBC -17.8, fever CT abdomen and pelvis , urinalysis and blood cx orderd Continuous drainage of Hernandez Continent ileostomy on October 02 WBC trending down , patient afebrile CT scan revealed small gas and fluid collection adjacent to tip of continent ileostomy catheter in pouch r/o localized walled-off confined perforation draining back into pouch? R/O intra-abdominal abscess and r/o confined perforation of pouch, or could be part of the pouch anatomy Gentle Gastrografin continent ileostomy pouchogram 10/03 ordered IV antibiotics continued (gent/clind) continuous drainage of Hernandez continent ileostomy pouch maintained Review of Gastrografin pouchogram revealed normal study, and review of CT scans confirmed no evidence for extravasation/perforation/intra-abdominal abscess Started peripheral IV and dc PICC , culture tip abx continued Lomotil 1 tab ac due to high volume ileostomy output 10/04 Jeevan removed and steri-strips applied. Gastrostomy removed d/c antibiotics, blood cx negative, afebrile, leukocytosis resolved started on RN teaching/supervision of Hernandez Pouch self-intubations in AM 10/05 Afebrile, off antibiotics Consumed 70-100% of meals. wound and G-tube sites clean BCIR catheter removed - slight lateral retraction of stoma noted started on RN education/supervision of BCIR self-intubations q2h from awakening to hs and 0200 and prn off IV fluids strict I&O continued resumed pre-admission NaHCO3 650pm po 4x daily 10/06 [id number] was learning intubation techniques well. Tolerated diet, no GI complaints Gastrostomy site healing well, RLQ wound clean and granulating, stoma lateral separation at 9:00 is clean and epithelializing RN supervised BCIR self-intubations q2h am to hs and 0200 cobntinued I&O continued 10/07 Rx Percocet 5/325 #40 Lomotil tablets 2.5mg #60 Discharge supplies provided dc instructions provided cleared for d/c with outpt fup as advised by surgeon FINAL DIAGNOSES: 1. Malfunctioning Ying ileostomy with recurrent frequent prolapse as well as retraction and allergies to adhesives of the appliance. 2. History of ulcerative colitis. 3. History of acromegaly status post pituitary tumor surgery x3 at age 52 4. History of chronic anxiety for 20 years. 5. Status post total hip replacement left hip 2013. 6. Status post multiple abdominal operations. 6.1. Proctocolectomy with ileoanal J-pouch and temporary loop ileostomy 1998 6.2. Closure of loop ileostomy 1998. 6.3. Laparotomy for small bowel obstruction with short segment resected 2001 6.4. Laparotomy for small bowel obstruction in 2003. 6.5. Laparotomy for small bowel obstruction with short segment resected 2007 6.6. Laparotomy with takedown and resection of ileoanal J-pouch with abdomino-perineal proctectomy and creation of Ying ileostomy April 2015 7. s/p 09/20/17 7.1 Hernandez continent ileostomy. 7.2. Catheter gastrostomy. anemia, table, s/p Venofer x 5 days ileus, resolved probable clinical peritonitis, resolved malnutrition moderate to severe dehydration, resolved recurrent perineum sinus tract bleeding, resolved Discharge Medications Continued Medications: Amitriptyline Hcl* (Amitriptyline Hcl*) 25 Mg Tablet 25 MG ORAL BEDTIME, TAB (This prescription has been renewed) Clonazepam* (Klonopin*) 0.5 Mg Tablet 0.5 MG ORAL TID, #15 TAB 0 Refills (This prescription has been renewed) Dicyclomine Hcl (Dicyclomine Hcl) 20 Mg Tablet 20 MG PO QID, TAB (This prescription has been renewed) Paroxetine Hcl (Paxil) 40 Mg Tablet 40 MG ORAL DAILY, #30 TAB 0 Refills (This prescription has been renewed) Sodium Bicarbonate* (Nahco3*) 650 Mg Tablet 650 MG PO BID, TAB (This prescription has been renewed) Discontinued Medications: Hydrocodone Bit/Acetaminophen 5-325* ([place] 5-325*) 1 Each Tablet 1 TAB ORAL Q4H PRN for For Pain, #30 TAB 0 Refills Hydrocodone Bit/Acetaminophen 5-325* ([place] 5-325*) 1 Each Tablet 2 TAB ORAL Q4H PRN for For Pain, #30 TAB 0 Refills Discharge Condition Upon Discharge: stable Discharge Disposition Patient was discharged to Home (01) Discharge Instructions Discharge Instructions Special Instructions I have been assigned to complete a D/C Summary on this account. I was not involved in the patient management Daisy Gilliam NP ([place]) Oct 07, 2017 10:57
== END 2017-10-07 08:35 | disposition home or self-care (01) | DRG 326 ==
LOC: 3E 08:35
PROC: 0DH60UZ Insertion of Feeding Device into Stomach, Open Approach (ICD-10-PCS; principal; 2017-09-19)
PROC: 0D1B0Z4 Bypass Ileum to Cutaneous, Open Approach (ICD-10-PCS; principal; 2017-09-19)
DX: K94.13 Enterostomy malfunction (principal); K65.8 Other peritonitis; E43 Unspecified severe protein-calorie malnutrition; E87.1 Hypo-osmolality and hyponatremia; K56.7 Ileus, unspecified; E86.0 Dehydration; R50.82 Postprocedural fever; Z68.21 Body mass index [BMI] 21.0-21.9, adult; D64.9 Anemia, unspecified; F41.9 Anxiety disorder, unspecified; Z96.642 Presence of left artificial hip joint
CPT/HCPCS: 36415; 36569; 71045; 72192; 74177; 74270; 76937; 80048; 80053; 80170; 81001; 81003; 82607; 82728; 82746; 82962; 83540; 83550; 83735; 84100; 85007; 85025; 85610; 85730; 86850; 86900; 86901; 87040; 87086; 87324; 93005; 94003; 94150; J1815; J2250; J2405; J2710; S0077